=== PATIENT | female | born 1980 | race African-American/Black ===

== ENCOUNTER 2017-12-15 17:18 | Emergency (ER) | payer OTHER ==
[2017-12-15 17:40] VITALS: TEMP 97.9; BMI 39.0
--- NOTE | 2017-12-15 18:16 | PDOC ---
History of Present Illness - General Chief Complaint: Pain, Acute Stated Complaint: LEFT LEG PAIN Time Seen by Provider: 12/15/17 18:14 - History of Present Illness Initial Comments: 37yo F with PMH of Bipolar disorder, HTN, GERD, Strokes, DVT s/p IVC filter presenting with left leg pain. The pain is rated 12/10 and started yesterday while the patient was walking. She reports intermittent leg pain, but this pain was greater in severity than she is accustomed to and so she decided to come into the ED. Has not taken anything at home for pain. Patient recently moved from [place], but reports that she was seen at [facility] in [place] and [facility] in [place] for her strokes and blood clots over the past year or two. She was prescribed Eliquis 5mg po BID which she takes as instructed. She endorses a headache that started earlier today and is similar to previous headaches. Patient denies focal neurologic deficits, weakness, or slurred speech. Patient took three buses in her travels from [place] to [place]. No hemoptysis, no recent surgical history, and no hormone use. Reports urinary frequency and urgency, but no dysuria or hematuria. Denies fevers, chills, chest pain, or shortness of breath. Past History - Past Medical History Allergies/Adverse Reactions: Allergies Allergy/AdvReac Type Severity Reaction Status Date / Time No Known Drug Allergies Allergy Verified 12/15/17 17:41 Home Medications: Ambulatory Orders Apixaban [Eliquis] 5 mg PO BID 12/15/17 Cephalexin [Keflex] 500 mg PO BID #14 capsule 12/15/17 Anemia: No Asthma: No Cancer: No Cardiac Disorders: No CVA: Yes (stroke x 2 and blood clots.) COPD: No CHF: No Dementia: No Diabetes: No GI Disorders: Yes (ACID REFLUX) Disorders: No HTN: Yes Hypercholesterolemia: No Liver Disease: No Psychiatric Problems: Yes (bipolar) Seizures: No Thyroid Disease: No - Surgical History Abdominal Surgery: Yes (D AND C) Appendectomy: No Cardiac Surgery: No Cholecystectomy: No Lung Surgery: No Neurologic Surgery: No Orthopedic Surgery: No - Reproductive History (#): 4 Para: 1 Cervical CA: No Dysfunctional Uterine Bleeding: No Ectopic : No Endometrial CA: No Polycystic Ovaries: No Therapeutic (s) & number: Yes (2) Tubal Ligation: No Spontaneous : 0 - Suicide/Smoking/Psychosocial Hx Smoking Status: No Smoking History: Never smoked Have you smoked in the past 12 months: No Number of Cigarettes Smoked Daily: 0 Information on smoking cessation initiated: No Hx Alcohol Use: No Drug/Substance Use Hx: No Substance Use Type: Alcohol Hx Substance Use Treatment: No Review of Systems - Review of Systems Comments:: Constitutional: no fever, no chills HEENT: no throat pain, no dysphagia Cardiovascular: no chest pain, no palpitations Respiratory: no cough, no shortness of breath Gastrointestinal: no abdominal pain, no nausea, no vomiting Genitourinary: +urgency, +frequency Musculoskeletal: +leg pain Skin: no rash, no itching Neurologic: +headache, no dizziness *Physical Exam - Vital Signs Last Vital Signs Temp Pulse Resp BP Pulse Ox 97.9 F 72 16 113/74 100 12/15/17 17:18 12/15/17 17:18 12/15/17 17:18 12/15/17 17:18 12/15/17 17:18 - Physical Exam Comments: General: Awake, alert, and fully oriented, in no acute distress Head: No signs of trauma Eyes: EOMI, sclera anicteric ENT: Moist mucus membranes Neck: Normal ROM, supple Lungs: Lungs clear, Normal breath sounds Cardio: Regular rhythm, S1 and S2 present Abdomen: Soft, nontender. No guarding, no rebound, no masses Extremities: Upper left lateral thigh tender to palpation; Normal range of motion, Distal pulses present SKIN: Warm, Dry, normal turgor Neurologic: Cranial nerves II through XII grossly intact. Normal speech Medical Decision Making - Medical Decision Making 37yo F with PMH of Bipolar disorder, HTN, GERD, Strokes, DVT s/p IVC filter presenting with left leg pain. -DDX includes DVT, MSK, compartment syndrome, gout, IVC filter complication -With the installation of IVC filter and no SOB, there is low suspicion for PE -Patient is on Eliquis, but will assess left leg for DVT with duplex ultrasound 12/15/17 16:50 -UA positive for UTI -Keflex 500 given in ED and sent to pharmacy Patient reports feeling sufficient palliation of her headache with tylenol. -US negative for DVT -Patient is new to the area and does not have a primary care doctor or specialists. Referred to [facility], Cardiology, Neurology, and Vascular. -Discharged. Patient amenable to plan *DC/Admit/Observation/Transfer Diagnosis at time of Disposition: Urinary tract infection, Leg pain - Discharge Dispostion Disposition: HOME Condition at time of disposition: Improved - Prescriptions Prescriptions: Cephalexin [Keflex] 500 mg PO BID #14 capsule - Referrals Referrals: [facility] [place] Internal Med at [place] [Provider Group] Yusuf Orozco DO [Staff Physician] - Jan Scott [Non Staff, Medical] - Brando Mariano MD [Non Staff, Medical] - - Patient Instructions Printed Discharge Instructions: DI for Urinary Tract Infection (UTI) Additional Instructions: You came to the ED for left leg pain. Ultrasound study did not show a blood clot. Urinalysis shows that you have a urinary tract infection. Prescription sent to your pharmacy: Keflex, take 1 capsule twice a day for seven days for your urinary tract infection. Follow-up with a primary care doctor this week to discuss this ED visit and to further evaluate your leg pain. You have been referred to the [facility]. Call and make an appointment at the number provided. You have also been referred to cardiology, vascular, neurology specialists. Call and make appointments at the number provided. You can use [id number] tylenol for your pain. Take as instructed on the medication bottle. Continue to take eliquis as prescribed by your doctor. Medical attention is required if: you experience persistent symptoms, worsening pain, severe headache, have a seizure, or have focal numbness or weakness. If you think you are having an emergency, call for emergency medical services or present to the emergency department right away - Post Discharge Activity
[2017-12-15 19:43] LABS: URINE APPEARANCE CLEAR; URINE BILIRUBIN NEGATIVE (<2.0 mg/dL); URINE COLOR YELLOW; URINE GLUCOSE (UA) NEGATIVE (NEGATIVE); URINE KETONE 1+ (NEGATIVE); URINE LEUK ESTERASE 1+ (NEGATIVE); URINE NITRITE NEGATIVE (NEGATIVE); URINE PROTEIN NEGATIVE (NEGATIVE); URINE UROBILINOGEN NEGATIVE mg/dL (0.2-1.0)
[2017-12-15] MEDS ORDERED: ACETAMINOPHEN 1000 MG/100 ML VIAL (NON FORMULARY) IVPB ONE (19:43)
[2017-12-15] MEDS ORDERED: ACETAMINOPHEN 325 MG TABLET (FP) PO ONE (19:46)
--- NOTE | 2017-12-15 19:53 | PDOC ---
Attending Attestation - Resident Resident Name: Elizabeth Patel - ED Attending Attestation I have performed the following: I have examined & evaluated the patient, The case was reviewed & discussed with the resident, I agree w/resident's findings & plan, Exceptions are as noted - HPI HPI: 12/15/17 22:51 see mdm - Physicial Exam PE: 12/15/17 22:51 see mdm - Medical Decision Making 12/15/17 19:57 37F pmh of multiple dvts, cva s/p ivc filter on eliquis, compliant with medications. [facility] moved here last week was on a bus for days. Complaining of LLE px, no swelling, no pleuritic cp, sob, hemoptysis Well appearing, NAD, AOx3 mild ttp over L hip, no LLE swelling, tenderness Given hx, will evaluate for possible acute new thrombus analgesia, f/u doppler dispo per clinical course 12/15/17 22:50 resolution of complaints, doppler negative for dvt dc home with pcp follow up
[2017-12-15 19:54] LABS: EPI CELLS RARE /HPF (FEW); URINE MUCUS FEW
[2017-12-15] MEDS ORDERED: ACETAMINOPHEN 325 MG TABLET (FP) ONE (20:01)
[2017-12-15] MEDS ORDERED: CEPHALEXIN MONOHYDRATE 500 MG CAPSULE (UD) PO ONE (21:06)
[2017-12-15] MEDS ORDERED: CEPHALEXIN MONOHYDRATE 250 MG CAPSULE (FP) ONE (21:11)
[2017-12-15 21:31] VITALS: BP 118/72; PULSE 74
== END 2017-12-15 21:31 | disposition home or self-care (01) ==
LOC: JER 17:18
DX: M79.605 Pain in left leg (principal); N39.0 Urinary tract infection, site not specified; I10 Essential (primary) hypertension; F31.9 Bipolar disorder, unspecified; K21.9 Gastro-esophageal reflux disease without esophagitis; Z86.718 Personal history of other venous thrombosis and embolism
CPT/HCPCS: 81003; 81015; 84703; 87086; 93971-TC; 99283-25

== ENCOUNTER 2018-04-10 22:23 | Emergency (ER) | payer OTHER ==
--- NOTE | 2018-04-10 22:43 | PDOC ---
History of Present Illness - General Chief Complaint: Pain Stated Complaint: ABDOMINAL PAIN Time Seen by Provider: 04/10/18 22:43 Past History - Past Medical History Allergies/Adverse Reactions: Allergies Allergy/AdvReac Type Severity Reaction Status Date / Time No Known Drug Allergies Allergy Verified 12/15/17 17:41 Home Medications: Ambulatory Orders Apixaban [Eliquis] 5 mg PO BID 12/15/17 Cephalexin [Keflex] 500 mg PO BID #14 capsule 12/15/17 Anemia: No Asthma: No Cancer: No Cardiac Disorders: No CVA: Yes (stroke x 2 and blood clots.) COPD: No CHF: No Dementia: No Diabetes: No GI Disorders: Yes (ACID REFLUX) Disorders: No HTN: Yes Hypercholesterolemia: No Liver Disease: No Psychiatric Problems: Yes (bipolar) Seizures: No Thyroid Disease: No - Surgical History Abdominal Surgery: Yes (D AND C) Appendectomy: No Cardiac Surgery: No Cholecystectomy: No Lung Surgery: No Neurologic Surgery: No Orthopedic Surgery: No - Reproductive History (#): 4 Para: 1 Cervical CA: No Dysfunctional Uterine Bleeding: No Ectopic : No Endometrial CA: No Polycystic Ovaries: No Therapeutic (s) & number: Yes (2) Tubal Ligation: No Spontaneous : 0 - Suicide/Smoking/Psychosocial Hx Smoking Status: No Smoking History: Never smoked Have you smoked in the past 12 months: No Number of Cigarettes Smoked Daily: 0 Hx Alcohol Use: No Drug/Substance Use Hx: No Substance Use Type: Alcohol Hx Substance Use Treatment: No Abd/GI Specific PMHX - Complaint Specific PMHX GERD: No GI Ulcer Disease: No
[2018-04-10 22:54] VITALS: BP 113/73; PULSE 93; TEMP 97.8; BMI 36.6
[2018-04-10] MEDS ORDERED: ACETAMINOPHEN 1000 MG/100 ML VIAL (NON FORMULARY) IVPB ONE (22:56)
[2018-04-10] MEDS ORDERED: ACETAMINOPHEN 325 MG TABLET (FP) PO ONE (23:01)
--- NOTE | 2018-04-10 23:06 | PDOC ---
Attending Attestation - Resident Resident Name: Catie Mays - ED Attending Attestation I have performed the following: I have examined & evaluated the patient, The case was reviewed & discussed with the resident, I agree w/resident's findings & plan, Exceptions are as noted - HPI HPI: 04/10/18 23:02 37 yo female BIBA for multiple complaints 1)rt knee pain , 2) hot flashes, 3 ) abd pain 4) decreased appetite 5) frontal headache She has had all of these symptoms for 3 days - Physicial Exam PE: 04/10/18 23:14 wnwd 37 yo female BIBA for multiple concerns head ncat neck supple lungs cta b/l cvs [id number] abd protuberant extremities: tenderness to rt knee but no appreciable swelling, ,no erythema,no edema,no deformity skin warm and dry neuro axox3,moving all extremities psych anxious - Medical Decision Making 04/10/18 23:18 She reports a past medical history of multiple DVTs and is on eliquis. She had IVC filter placed. She reports a CVA in the past, but she has no residual on her neurological exam. History of bipolar <Milena Bagley - Last Filed: 04/10/18 23:18> - Medical Decision Making 04/11/18 01:35 EXAM: Ultrasound DUPLEX VASCULAR US-1 LEG HISTORY: Right leg edema COMPARISON: None. FINDINGS: Ultrasound right lower extremity veins demonstrates normal compression flow and augmentation IMPRESSION: No deep vein thrombosis Read by: Evans Grace MD Patient eloped at 1:21 AM. At this time vitals were stable, denied further care , denied signing AMA form, and ambulated with a steady gait without ataxia. <Francis Giron - Last Filed: 04/11/18 01:39> Attestations - Attestations 04/11/18 01:36 Documentation prepared by Francis Giron, acting as bio medical technician for Milena Bagley MD. <Francis Giron - Last Filed: 04/11/18 01:39>
--- NOTE | 2018-04-10 23:10 | PDOC ---
History of Present Illness - General Chief Complaint: Pain Stated Complaint: ABDOMINAL PAIN Time Seen by Provider: 04/10/18 22:43 History Source: Patient Exam Limitations: No Limitations - History of Present Illness Initial Comments: Pt is a 37 yo F, with PMH of CVA (no residual deficits), IVC filter (on Eliquis) , and bipolar disorder, who is presenting with complaints of decreased PO appetite, diffuse abdominal pain, hot/cold flashes, frontal headache, loose stool, and RLE pain and swelling x3 days. Pt states all of the symptoms started around the same time. She came to the ER today because she did not have an appetite which is unusual for her, so her roommate called EMS. She took tylenol this morning which relieved her symptoms, but did not take any additional doses before coming to the ER, nor did she take her temperature at home. Pt denies any falls or trauma. Pt denies any vision changes, syncope, numbness/weakness, chest pain, palpitations, SOB, nausea/vomiting, urinary symptoms, or constipation. LMP: 03/23/2018 and was normal Social: Regular THC use "for pain". Pt denies any cigarette or alcohol use. Pt denies any recent travel or sick contacts. Surgical: IVC placement. Family: no relevant history. 04/11/18 00:09 Past History - Travel Traveled outside of the country in the last 30 days: No Close contact w/someone who was outside of country & ill: No - Past Medical History Allergies/Adverse Reactions: Allergies Allergy/AdvReac Type Severity Reaction Status Date / Time No Known Drug Allergies Allergy Verified 12/15/17 17:41 Home Medications: Ambulatory Orders Apixaban [Eliquis] 5 mg PO BID 12/15/17 Cephalexin [Keflex] 500 mg PO BID #14 capsule 12/15/17 Anemia: No Asthma: No Cancer: No Cardiac Disorders: No CVA: Yes (stroke x 2 and blood clots.) COPD: No CHF: No Dementia: No Diabetes: No GI Disorders: Yes (ACID REFLUX) Disorders: No HTN: Yes Hypercholesterolemia: No Liver Disease: No Psychiatric Problems: Yes (bipolar) Seizures: No Thyroid Disease: No - Surgical History Abdominal Surgery: Yes (D AND C) Appendectomy: No Cardiac Surgery: No Cholecystectomy: No Lung Surgery: No Neurologic Surgery: No Orthopedic Surgery: No - Reproductive History (#): 4 Para: 1 Cervical CA: No Dysfunctional Uterine Bleeding: No Ectopic : No Endometrial CA: No Polycystic Ovaries: No Therapeutic (s) & number: Yes (2) Tubal Ligation: No Spontaneous : 0 - Suicide/Smoking/Psychosocial Hx Smoking Status: No Smoking History: Never smoked Have you smoked in the past 12 months: No Number of Cigarettes Smoked Daily: 0 Hx Alcohol Use: No Drug/Substance Use Hx: Yes (Marijuana) Substance Use Type: Alcohol Hx Substance Use Treatment: No Review of Systems - Review of Systems Able to Perform ROS?: Yes Is the patient limited Slovenian proficient: No Constitutional: Yes: Chills, Fever (subjective), Loss of Appetite, Weight Stable. No: Diaphoresis, Malaise, Night Sweats, Weakness HEENTM: No: Eye Pain, Blurred Vision, Recent change in vision, Double Vision, Nose Pain, Nose Congestion, Throat Pain, Throat Swelling, Difficulty Swallowing Respiratory: No: Cough, Orthopnea, Shortness of Breath, SOB with Exertion, SOB at Rest, Wheezing Cardiac (ROS): No: Chest Pain, Edema, Irregular Heart Rate, Lightheadedness, Palpitations, Syncope, Chest Tightness ABD/GI: Yes: Diarrhea, Poor Appetite. No: Constipated, Nausea, Poor Fluid Intake, Vomiting : No: Burning, Dysuria, Flank Pain, Pain, Urgency Musculoskeletal: Yes: See HPI, Joint Pain (R knee pain and swelling per pt), Joint Swelling. No: Back Pain, Muscle Pain, Muscle Weakness Integumentary: Yes: Flushing. No: Erythema, Rash Neurological: Yes: Headache. No: Numbness, Paresthesia, Pre-Existing Deficit, Seizure, Weakness, Unsteady Gait, Ataxia, Dizziness Psychiatric: Yes: Other (Bipolar). No: Sleep Pattern Change, Change in Appetite (only x3 days) Endocrine: Yes: Other (hot/cold flashes). No: Increased Urine, Change in Weight Hematologic/Lymphatic: Yes: Blood Clots (CVA, s/p IVC filter). No: Anemia, Easy Bleeding, Easy Bruising All Other Systems: Reviewed and Negative *Physical Exam - Vital Signs Last Vital Signs Temp Pulse Resp BP Pulse Ox 97.8 F 93 H 19 113/73 100 04/10/18 22:25 04/10/18 22:25 04/10/18 22:25 04/10/18 22:25 04/10/18 22:25 - Physical Exam Comments: Vitals stable, pt afebrile. Pt in NAD, obese body habitus. Pt very reactive to touch, states "everything hurts," but no obvious tenderness on exam. Pt can answer questions appropriately, but does not act stated age, and does not directly answer questions without prompting. PE showed pt alert and oriented. employee relations consultant generally intact, muscular strength and sensation intact. Eyes PERRLA, EOMI. Oropharynx without erythema or exudates, no LAD b/l. Moist mucous membranes, no decreased skin turgor. No nasal congestion, hearing intact. Clear heart sounds, S1/S2, no JVD, b/l pedal edema, or heart murmur. Clear lung sounds , no respiratory distress, wheezes, crackles, or accessory muscle use. No abdominal or CVA tenderness to palpation, no rebound, no guarding. Abdomen soft , non-distended, and with normoactive bowel sounds. Skin without jaundice or rash. Mild swelling RLE compared to LLE, muscle strength and sensation intact in hips and knees. 04/11/18 00:14 Moderate Sedation - Procedure Monitoring Vital Signs: Procedure Monitoring Vital Signs Temperature 97.8 F 04/10/18 22:25 Pulse Rate 93 H 04/10/18 22:25 Respiratory Rate 19 04/10/18 22:25 Blood Pressure 113/73 04/10/18 22:25 O2 Sat by Pulse Oximetry (%) 100 04/10/18 22:25 ED Treatment Course - RADIOLOGY Radiology Studies Ordered: Category Date Time Status DUPLEX VASCUL US-1 LEG [US] Stat Ultrasound 04/10/18 23:00 Ordered Medical Decision Making - Medical Decision Making Pt was seen at bedside, also will be seen by attending Dr. Bagley. Pt presenting with complaints of decreased PO appetite, diffuse abdominal pain, hot /cold flashes, frontal headache, loose stool, and RLE pain and swelling x3 days. Pt states all of the symptoms started around the same time. She came to the ER today because she did not have an appetite which is unusual for her, so her roommate called EMS. She took tylenol this morning which relieved her symptoms, but did not take any additional doses before coming to the ER, nor did she take her temperature at home. Pt denies any falls or trauma. Pt denies any vision changes, syncope, numbness/weakness, chest pain, palpitations, SOB, nausea/vomiting, urinary symptoms, or constipation. Vitals stable, pt afebrile. Pt in NAD, obese body habitus. Pt very reactive to touch, states "everything hurts," but no obvious tenderness on exam. Pt can answer questions appropriately, but does not act stated age, and does not directly answer questions without prompting. PE showed pt alert and oriented. employee relations consultant generally intact, muscular strength and sensation intact. Eyes PERRLA, EOMI. Oropharynx without erythema or exudates, no LAD b/l. Moist mucous membranes, no decreased skin turgor. No nasal congestion, hearing intact. Clear heart sounds, S1/S2, no JVD, b/l pedal edema, or heart murmur. Clear lung sounds , no respiratory distress, wheezes, crackles, or accessory muscle use. No abdominal or CVA tenderness to palpation, no rebound, no guarding. Abdomen soft , non-distended, and with normoactive bowel sounds. Skin without jaundice or rash. Mild swelling RLE compared to LLE, muscle strength and sensation intact in hips and knees. Considering DVT reoccurence vs viral illness. Pt has IVC filter and on anti- coagulation, but will r/o DVT with US. No need for D-dimer at this time, as pt anti-coagulated, O2 100% on RA, no SOB. Minimal concern for meningitis as pt has no neck pain with flexion/extension, afebrile, no meningeal signs. Pt has no focal neurologic deficits on exam, no weakness, unlikely CVA. Ordered work-up including CBC, CMP, and RLE US to r/o DVT. Provided 950 mg PO tylenol and PO water for improvement of headache and likely dehydration. Will continue to reassess pt and monitor for symptomatic improvement. Pt was very difficult stick and is not tolerating additional butterfly sticks. Providing PO water to improve hydration. Pt tolerating PO challenge. Will take pt to US and try labs again if pt is willing. 04/10/18 23:44 Pt returned from US. Providing 10 mg PO reglan and 25 mg PO benadryl. Will attempt to re-draw labs. 04/11/18 00:33 US LE: FINDINGS: Ultrasound right lower extremity veins demonstrates normal compression flow and augmentation. No DVT. 04/11/18 01:00 Pt refused further lab work and eloped. Refused to sign AMA form. Offered pt labwork and to continue to monitor for other methods of pain control, which she refused. Pt tolerated PO intake before leaving department. Vital signs were WNL. 04/11/18 01:21 *DC/Admit/Observation/Transfer Diagnosis at time of Disposition: Leg pain Qualifiers: Laterality: right Qualified Code(s): M79.604 - Pain in right leg - Discharge Dispostion Disposition: ELOPED Condition at time of disposition: Good Decision to Admit order: No - Referrals Referrals: [facility] [place] [facility] at [place] [Provider Group] - Patient Instructions Printed Discharge Instructions: DI for Leg Pain - Post Discharge Activity
[2018-04-10] MEDS ORDERED: ACETAMINOPHEN 325 MG TABLET (FP) ONE (23:43)
[2018-04-11] MEDS ORDERED: diphenhydrAMINE HCL 25 MG CAPSULE (FP) PO ONE ×4 (00:32→01:03)
[2018-04-11] MEDS ORDERED: METOCLOPRAMIDE HCL 10 MG TABLET (FP) PO ONE ×3 (00:32→01:02)
== END 2018-04-11 01:52 | disposition left against medical advice (07) ==
LOC: JER 22:23
DX: M79.604 Pain in right leg (principal); Z86.718 Personal history of other venous thrombosis and embolism; Z79.01 Long term (current) use of anticoagulants; F31.9 Bipolar disorder, unspecified; Z86.73 Personal history of transient ischemic attack (TIA), and cerebral infarction without residual deficits; Z95.828 Presence of other vascular implants and grafts
CPT/HCPCS: 93971-TC; 99282-25

== ENCOUNTER 2018-06-14 15:11 | Emergency (ER) | payer OTHER ==
--- NOTE | 2018-06-14 15:21 | PDOC ---
Rapid Medical Evaluation Time Seen by Provider: 06/14/18 15:18 Medical Evaluation: Allergies Allergy/AdvReac Type Severity Reaction Status Date / Time No Known Drug Allergies Allergy Verified 12/15/17 17:41 06/14/18 15:18 I have performed a brief in-person evaluation of this patient. The patient presents with a chief complaint of: left ear pain x2 days. On abx. Pertinent physical exam findings: deferred I have ordered the following: nothing The patient will proceed to the ED for further evaluation. Discharge Disposition - Diagnosis Ear pain, left - Referrals - Patient Instructions - Post Discharge Activity
[2018-06-14 15:23] VITALS: BP 116/70; PULSE 89; TEMP 99.1; BMI 37.8
--- NOTE | 2018-06-14 16:00 | PDOC ---
History of Present Illness - General Chief Complaint: Ear Problem Stated Complaint: EARACHE Time Seen by Provider: 06/14/18 15:18 History Source: Patient, Care Provider (COVER INSPECTOR) - History of Present Illness Associated Symptoms: denies: fever/chills Past History - Travel Traveled outside of the country in the last 30 days: No - Past Medical History Allergies/Adverse Reactions: Allergies Allergy/AdvReac Type Severity Reaction Status Date / Time No Known Drug Allergies Allergy Verified 06/14/18 15:44 Home Medications: Ambulatory Orders Apixaban [Eliquis] 5 mg PO BID 12/15/17 Ciprofloxacin HCl [Cipro] 500 mg PO BID 7 Days #14 tab 06/14/18 Ciprofloxacin HCl [Cipro] 500 mg PO BID 7 Days #14 tablet 06/14/18 Anemia: No Asthma: No Cancer: No Cardiac Disorders: No CVA: Yes (stroke x 2 and blood clots.) COPD: No CHF: No Dementia: No Diabetes: No GI Disorders: Yes (ACID REFLUX) Disorders: No HTN: No Hypercholesterolemia: No Liver Disease: No Psychiatric Problems: Yes (bipolar) Seizures: No Thyroid Disease: No - Surgical History Abdominal Surgery: Yes (D AND C) Appendectomy: No Cardiac Surgery: No Cholecystectomy: No Lung Surgery: No Neurologic Surgery: No Orthopedic Surgery: No - Reproductive History (#): 4 Para: 1 Cervical CA: No Dysfunctional Uterine Bleeding: No Ectopic : No Endometrial CA: No Polycystic Ovaries: No Therapeutic (s) & number: Yes (2) Tubal Ligation: No Spontaneous : 0 - Suicide/Smoking/Psychosocial Hx Smoking Status: No Smoking History: Never smoked Have you smoked in the past 12 months: No Number of Cigarettes Smoked Daily: 0 Hx Alcohol Use: No Drug/Substance Use Hx: No Substance Use Type: Alcohol Hx Substance Use Treatment: No Review of Systems - Review of Systems Constitutional: No: Chills, Fever HEENTM: Yes: Ear Pain, Ear Discharge. No: Throat Pain, Throat Swelling Respiratory: No: Cough, Shortness of Breath Cardiac (ROS): No: Chest Pain *Physical Exam - Vital Signs Last Vital Signs Temp Pulse Resp BP Pulse Ox 99.1 F 89 18 116/70 100 06/14/18 15:20 06/14/18 15:20 06/14/18 15:20 06/14/18 15:20 06/14/18 15:20 - Physical Exam General Appearance: Yes: Nourished HEENT: positive: EOMI, ANGELINE, Pharynx Normal, Other (L ear: + entire auricle with swelling, erythema and warmth, + yellowish discharge coming from TM, no pre /post auricular lymphadenopathy noted, + tendern to touch. 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 perichondritis involvement to cover pseudomonas f/u ENT in 2 days for wound check 06/14/18 19:35 06/14/18 19:39 *DC/Admit/Observation/Transfer Diagnosis at time of Disposition: Ear pain, left, Cellulitis of auricle of left ear - Discharge Dispostion Disposition: HOME Condition at time of disposition: Stable Decision to Admit order: No - Prescriptions Prescriptions: Ciprofloxacin HCl [Cipro] 500 mg PO BID 7 Days #14 tab Ciprofloxacin HCl [Cipro] 500 mg PO BID 7 Days #14 tablet - Referrals Referrals: Sid Bailey [Staff Physician] - - Patient Instructions Printed Discharge Instructions: Cellulitis Additional Instructions: Take antibiotics as prescribed follow up with your primary care doctor for a wound check in 2 days Take tylenol for pain return to the ER if worsening symptoms occurs - Post Discharge Activity
== END 2018-06-14 16:32 | disposition home or self-care (01) ==
LOC: JERFT 15:11
DX: H60.12 Cellulitis of left external ear (principal); K21.9 Gastro-esophageal reflux disease without esophagitis; Z86.73 Personal history of transient ischemic attack (TIA), and cerebral infarction without residual deficits; Z79.01 Long term (current) use of anticoagulants
CPT/HCPCS: 99281-25

== ENCOUNTER 2018-10-31 10:26 | Day surgery (SDC) | payer OTHER ==
[2018-10-28 15:54] VITALS: BMI 36.9
[2018-10-31 12:23] VITALS: TEMP 97.5
[2018-10-31] MEDS ORDERED: LIDOCAINE VISCOUS 2% ORAL/TOP 20 ML UNIT-DOSE CUP ONE (14:52)
[2018-10-31] MEDS ORDERED: LIDOCAINE VISCOUS 2% ORAL/TOP 20 ML UNIT-DOSE CUP MM ONE (15:01)
[2018-10-31 16:12] VITALS: BP 114/71; PULSE 64
--- NOTE | 2018-10-31 17:54 | ECHO ---
Name: CHAO, STEFANO Exam:Transesophageal Echocardiogram Study Date: 10/31/2018 02:44 PM Age: 38 yrs Height: 66 in Weight: 229 lb BSA: 2.1 m2 Procedure: A 2D transesophageal echocardiogram with Doppler and color flow Doppler was performed. Informed conse nt for Transesophageal Echocardiogram, and use of a contrast agent as needed, was obtained prior to the proc edure. The patient was brought to the endoscopy suite in a fasting state. An intravenous line was placed. A topical anesthetic agent was used for oropharangeal anesthesia. A bite block was inserted. IV concious sedati on was administered using propafol. A multifrequency, multiplane transesopheageal echocardiographic endoscop e was inserted and manipulated in the standard fashion to achieve multiplane views. The transesophageal pro be was passed without difficulty. The usual views were obtained; basal, mid-esophageal, transgastric and aor tic views. The patient's vital signs, including blood pressure, heart rate, pulse oximetry and cardiac rh ythm were monitored throughout the procedure and remained stable. The patient tolerated the procedure well with out evidence of orophangeal or esophageal trauma. There were no complications. The patient was in normal sinus rhythm during the exam. Left Ventricle The left ventricle is normal in size. Left ventricular systolic function is normal. No regional wall motion abnormalities noted. Atria The left atrial size is normal. No left atrial mass or thrombus visualized. No thrombus is detected i n the left atrial appendage. Color Doppler flow shows left to right flow across interatrial septum suggesti ng small ASD (but without an echo drop out). Agitated saline contrast injection does not show right to left sh unt. Mitral Valve The mitral valve is normal in structure and function. There is mild mitral regurgitation. Tricuspid Valve The tricuspid valve is normal in structure and function. There is mild tricuspid regurgitation. Aortic Valve The aortic valve is normal in structure and function. The aortic valve is trileaflet. No aortic regur gitation is present. Pulmonic Valve The pulmonic valve is not well visualized. Great Vessels No evidence of atherosclerotic plaque in descending thoracic aorta or aortic arch. Pericardium/Pluera There is no pericardial effusion. Interpretation Summary The left ventricle is normal in size. Left ventricular systolic function is normal. No regional wall motion abnormalities noted. The left atrial size is normal. No left atrial mass or thrombus visualized. No thrombus is detected in the left atrial appendage. Color Doppler flow shows left to right flow across interatrial septum suggesting small ASD (but witho ut an echo drop out). Agitated saline contrast injection does not show right to left shunt. Interatrial sep gonzález appears mildly redundant There is mild mitral regurgitation. There is mild tricuspid regurgitation. No evidence of atherosclerotic plaque in descending thoracic aorta or aortic arch There is no pericardial effusion. Fermín Chavis MD 10/31/2018 05:54 PM
== END 2018-10-31 16:12 | disposition home or self-care (01) ==
LOC: JASU-ENDO 10:26
PROVIDERS: ATTEND Internal Medicine Cardiovascular Disease
PROC: B246ZZ4 Ultrasonography of Right and Left Heart, Transesophageal (ICD-10-PCS; principal; 2018-10-31 13:45)
DX: I63.9 Cerebral infarction, unspecified (principal); E66.01 Morbid (severe) obesity due to excess calories; E78.5 Hyperlipidemia, unspecified
CPT/HCPCS: 84703; 93312; 93325

== ENCOUNTER 2018-12-31 19:10 | Inpatient (IN) | payer OTHER ==
[2018-12-31 19:21] VITALS: BMI 37.9
--- NOTE | 2018-12-31 19:44 | PDOC ---
History of Present Illness <Toña Swenson - Last Filed: 01/01/19 02:16> - General History Source: Patient Exam Limitations: No Limitations - History of Present Illness Initial Comments: 12/31/18 19:32 Patient is a 38-year-old female with history of HTN, HLD, CVA x2, PE, DVT, IVC filter, bipolar disorder, arthritis, AVN b/l hip L>R scheduled for L hip replacement on January [address] Bailey, c/o left hip and leg pain x 2-3 days. Patient states she had fallen in January last year and is afraid of falling again. She was going to PT last one due on Wednesday was discontinued from PT due pain. She was not given pain meds because she is on Eloquis. She had been self medicating with marijuana but with minimal relief. She now has difficulty ambulating due to the pain. PMD: Dr. Yancy Disla PMHX: as above PSOCHX: neg etoh, cig, (+) MJ ALL: NKDA GENERAL/CONSTITUTIONAL: [No fever or chills. No weakness. No weight change.] HEAD, EYES, EARS, NOSE AND THROAT: [No change in vision. No ear pain or discharge. No sore throat.] CARDIOVASCULAR: [No chest pain or shortness of breath.] RESPIRATORY: [No cough, wheezing, or hemoptysis.] GASTROINTESTINAL: [No nausea, vomiting, diarrhea or constipation. No rectal bleeding.] GENITOURINARY: [No dysuria, frequency, or change in urination.] MUSCULOSKELETAL: [(+) joint pain, (-) muscle swelling or pain. No neck or back pain.] SKIN AND BREASTS: [No rash or easy bruising.] NEUROLOGIC: [No headache, vertigo, loss of consciousness, or loss of sensation.] PSYCHIATRIC: [no depression or anxiety.] ENDOCRINE: [No increased thirst. No abnormal weight change.] HEMATOLOGIC/LYMPHATIC: [No anemia, easy bleeding, or history of blood clots.] ALLERGIC/IMMUNOLOGIC: [No hives or skin allergy. No latex allergy.] GENERAL: [The patient is awake, alert, and fully oriented, in moderate painful distress.] HEAD: [Normal with no signs of trauma.] EYES: [Pupils equal, round and reactive to light, extraocular movements intact, sclera anicteric, conjunctiva clear.] ENT: [Ears normal, nares patent, oropharynx clear without exudates. Moist mucous membranes.] NECK: [Limited range of motion of bilateral hip due to pain, supple without lymphadenopathy, JVD, or masses.] LUNGS: [Breath sounds equal, clear to auscultation bilaterally. No wheezes, and no crackles.] HEART: [Regular rate and rhythm, normal S1 and S2 without murmur, rub.] ABDOMEN: [Soft, nontender, normoactive bowel sounds. No guarding, no rebound. No masses.] EXTREMITIES: [Normal range of motion, no edema. No clubbing or cyanosis. No cords, erythema, or tenderness.] NEUROLOGICAL: [Cranial nerves II through XII grossly intact. Normal speech, normal gait.] PSYCH: [Normal mood, normal affect.] SKIN: [Warm, Dry, normal turgor, no rashes or lesions noted.] <Krissy Mclean - Last Filed: 01/01/19 02:22> - General Chief Complaint: Pain, Acute Stated Complaint: LEFT LEG PAIN Past History <Toña Swenson - Last Filed: 01/01/19 02:16> - Past Medical History Anemia: No Asthma: No Cancer: No Cardiac Disorders: No CVA: Yes (stroke x 2 - Mar 2017) COPD: No CHF: No Dementia: No Diabetes: No GI Disorders: No Disorders: No HTN: No Hypercholesterolemia: Yes Liver Disease: No Psychiatric Problems: Yes (bipolar) Seizures: No Thyroid Disease: No - Surgical History Abdominal Surgery: Yes Appendectomy: No Cardiac Surgery: Yes (IVC filter ) Cholecystectomy: No Lung Surgery: No Neurologic Surgery: No Orthopedic Surgery: No - Reproductive History (#): 4 Para: 1 Cervical CA: No Dysfunctional Uterine Bleeding: No Ectopic : No Endometrial CA: No Polycystic Ovaries: No Therapeutic (s) & number: Yes (2) Tubal Ligation: No Spontaneous : 0 - Psycho Social/Smoking Cessation Hx Smoking Status: No Smoking History: Never smoked Have you smoked in the past 12 months: No Number of Cigarettes Smoked Daily: 0 Hx Alcohol Use: No Drug/Substance Use Hx: No Substance Use Type: Alcohol, Marijuana Hx Substance Use Treatment: Yes (2012 [facility]) <Krissy Mclean - Last Filed: 01/01/19 02:22> - Past Medical History Allergies/Adverse Reactions: Allergies Allergy/AdvReac Type Severity Reaction Status Date / Time No Known Drug Allergies Allergy Verified 12/31/18 19:21 Home Medications: Ambulatory Orders Apixaban [Eliquis] 5 mg PO BID 12/15/17 *Physical Exam - Vital Signs Last Vital Signs Temp Pulse Resp BP Pulse Ox 98.3 F 94 H 20 111/64 99 12/31/18 19:18 12/31/18 19:18 12/31/18 19:18 12/31/18 19:18 12/31/18 19:18 <Toña Swenson - Last Filed: 01/01/19 02:16> - Vital Signs Last Vital Signs Temp Pulse Resp BP Pulse Ox 98.3 F 94 H 20 111/64 99 12/31/18 19:18 12/31/18 19:18 12/31/18 19:18 12/31/18 19:18 12/31/18 19:18 <Krissy Mclean - Last Filed: 01/01/19 02:22> ED Treatment Course - ADDITIONAL ORDERS Additional order review: Laboratory Results 12/31/18 22:57 POC Glucometer 119 12/31/18 22:57 POC Glucometer 119 - Medications Given in the ED: ED Medications Discontinued Medications Generic Name Dose Route Start Last Admin Trade Name Fide PRN Reason Stop Dose Admin Acetaminophen 1,000 mg 12/31/18 22:16 12/31/18 22:52 Ofirmev Injection - IVPB 12/31/18 22:17 1,000 mg ONCE ONE Administration Hydromorphone HCl 2 mg 12/31/18 19:45 12/31/18 20:28 Dilaudid Injection - IM 12/31/18 19:46 2 mg ONCE ONE Administration Lidocaine 1 patch 12/31/18 21:50 12/31/18 21:56 Lidoderm Patch - TP 12/31/18 21:51 1 patch ONCE ONE Administration Sodium Chloride 1,000 ml 12/31/18 22:06 12/31/18 22:45 Normal Saline - IV 12/31/18 22:07 1,000 ml ONCE ONE Administration <Toña Swenson - Last Filed: 01/01/19 02:16> Medical Decision Making - Medical Decision Making 01/01/19 02:16 Pt will be admitted to the hospital because she is unable to ambulate. Pain meds not helping her. Pt fears that she will fall at home. <Toña Swenson - Last Filed: 01/01/19 02:16> - Medical Decision Making 12/31/18 19:32 Patient is a 38-year-old female with history of HTN, HLD, CVA x2, PE, DVT, IVC filter, bipolar disorder, arthritis, AVN b/l hip L>R scheduled for L hip replacement on January [address] Bailey, c/o left hip and leg pain x 2-3 days. Patient states she had fallen in January last year and is afraid of falling again. She was going to PT last one due on Wednesday was discontinued from PT due pain. She was not given pain meds because she is on Eloquis. She had been self medicating with marijuana but with minimal relief. She now has difficulty ambulating due to the pain. Patient with hip pain will treat symptomatically Dilaudid 2 mg IM 12/31/18 22:00 Patient complaining of feeling really hot Examined mildly diaphoretic Fingerstick done = 104 BP 102/57, pulse 67, O2 sat 100% on room air We will give patient some IV fluids. 12/31/18 22:17 Still complains of pain will give Tylenol 1 g IV and Lidoderm patch 01/01/19 02:17 Attempted several times to ambulate the patient. Unable to get patient up for her to ambulate due to pain. She is concerned that she will fall and she is on Eliquis. Patient was endorsed to the resident team for endorsement for admission. <Krissy Mclean - Last Filed: 01/01/19 02:22> Discharge <Toña Swenson - Last Filed: 01/01/19 02:16> - Discharge Information Problems reviewed: Yes <Krissy Mclean - Last Filed: 01/01/19 02:22> - Discharge Information Clinical Impression/Diagnosis: Inability to ambulate due to hip, Avascular necrosis of bones of both hips Condition: Stable - Follow up/Referral Referrals: ON STAFF,NOT [Primary Care Provider] -
[2018-12-31] MEDS ORDERED: HYDROmorphone HCL CARPU-JECT 2 MG/1 ML DISP.SYRIN IM ONE (19:45)
[2018-12-31] MEDS ORDERED: HYDROmorphone HCl 2 MG/ML VIAL ONE (20:21)
[2018-12-31] MEDS ORDERED: LIDOCAINE 5% TOPICAL PATCH ONE (21:50)
[2018-12-31] MEDS ORDERED: LIDOCAINE 5% TOPICAL PATCH TP ONE (21:50)
[2018-12-31] MEDS ORDERED: LIDOCAINE PATCH REMOVAL MC SCH (22:00)
[2018-12-31] MEDS ORDERED: SODIUM CHLORIDE 0.9% 500 ML INFUS.BAG IV ONE (22:06)
[2018-12-31] MEDS ORDERED: ACETAMINOPHEN 1000 MG/100 ML VIAL (NON FORMULARY) IVPB ONE (22:16)
[2018-12-31] MEDS ORDERED: ACETAMINOPHEN INJECTION 100 ML IVPB ONE (22:46)
--- NOTE | 2019-01-01 02:18 | PDOC ---
*Physical Exam - Vital Signs Last Vital Signs Temp Pulse Resp BP Pulse Ox 98.3 F 94 H 20 111/64 99 12/31/18 19:18 12/31/18 19:18 12/31/18 19:18 12/31/18 19:18 12/31/18 19:18 ED Treatment Course - ADDITIONAL ORDERS Additional order review: Laboratory Results 12/31/18 22:57 POC Glucometer 119 12/31/18 22:57 POC Glucometer 119 - Medications Given in the ED: ED Medications Discontinued Medications Generic Name Dose Route Start Last Admin Trade Name Fide PRN Reason Stop Dose Admin Acetaminophen 1,000 mg 12/31/18 22:16 12/31/18 22:52 Ofirmev Injection - IVPB 12/31/18 22:17 1,000 mg ONCE ONE Administration Hydromorphone HCl 2 mg 12/31/18 19:45 12/31/18 20:28 Dilaudid Injection - IM 12/31/18 19:46 2 mg ONCE ONE Administration Lidocaine 1 patch 12/31/18 21:50 12/31/18 21:56 Lidoderm Patch - TP 12/31/18 21:51 1 patch ONCE ONE Administration Sodium Chloride 1,000 ml 12/31/18 22:06 12/31/18 22:45 Normal Saline - IV 12/31/18 22:07 1,000 ml ONCE ONE Administration Medical Decision Making - Medical Decision Making - Patient signed out to me from Dr. Fernandez to be admitted for avascular necrosis and inability to ambulate. Patient is scheduled for a hip replacement next month but cannot ambulate at the present time. - Patient microblogged for admission. - Patient accepted to hospitalist for admission Discharge - Discharge Information Problems reviewed: Yes Clinical Impression/Diagnosis: Inability to ambulate due to hip, Avascular necrosis of bones of both hips Condition: Stable - Admission Yes - Follow up/Referral - Patient Discharge Instructions - Post Discharge Activity
--- NOTE | 2019-01-01 02:30 | PN ---
Teaching Attending Note Name of Resident: Magi Perea ATTENDING PHYSICIAN STATEMENT I saw and evaluated the patient. I reviewed the resident's note and discussed the case with the resident. I agree with the resident's findings and plan as documented. SUBJECTIVE: Patient is a 38 year old woman with a PMH of HTN, HLD, CVA x2, PE, DVT, IVC filter, Bipolar disorder, Arthritis, Avascular necrosis of hips (L>R) scheduled for L hip replacement on January [address] Bailey (?at [facility]), presents with complaint of left hip and leg pain x 2-3 days. Patient states she had fallen in January last year and is afraid of falling again. She was going to PT last one due on Wednesday was discontinued from PT due pain. She was not given pain medications because she is on ?Eliquis. She had been self medicating with marijuana but with minimal relief. She now has difficulty ambulating due to the pain. Denies fever, chills, SOB, chest pain, headache, dizziness, dysuria or diarrhea. Denies tobacco, alcohol or illicit drug use. Has FH of HTN and hip replacement. OBJECTIVE: Alert Vital Signs Period Temp Pulse Resp BP Sys/Cain Pulse Ox Last 24 Hr 98.3 F 94 20 111/64 99 HEENT: No Jaundice, eye redness or discharge, PERRLA, EOMI. Normocephalic, atraumatic. External ears are normal and hearing is grossly intact. No nasal discharge. Neck: Supple, nontender. No palpable adenopathy or thyromegaly. No JVD Chest: Good effort. Clear to auscultation and percussion. Heart: Regular. No S3, rub or murmur Abdomen: Not distended, soft, nontender and no HSM. No rebound or guarding. Normal bowel sounds. Ext: Peripheral pulses intact. No leg edema. Tender left hip with limited ROM. Distal sensory and motor function intact. Skin: Warm and dry. No petechiae, rash or ecchymosis. Neuro: Alert. Oriented x3. CN 2-12 grossly intact. Sensation grossly intact in all four extremities and DTR are symmetric. Psych: Appropriate mood and affect. Good insight. Current Medications Generic Name Dose Route Start Last Admin Trade Name Freq PRN Reason Stop Dose Admin Miscellaneous 1 each 12/31/18 22:00 12/31/18 22:02 Lidoderm Patch Removal MC Not Given DAILY@2200 [facility] Home Medications Medication Instructions Recorded Apixaban [Eliquis] 5 mg PO BID 12/15/17 ASSESSMENT AND PLAN: 1. Hip pain/Avascular necrosis/Difficulty with ambulation - Will get basic laboratory tests including CBC, CMP, UA and EKG. Use IV morphine, PO tylenol and lidocaine patch for pain control. During the day, will contact her Ortho surgeon at [facility] to coordinate her care and ascertain the need for any further radiologic studies at [facility] since she is already scheduled for hip replacement surgery. Consult Pain management, Ortho and PT. Provide bowel regimen and continue to provide generous emotional support. Will continue comprehensive care for all of patients comorbid conditions. 2. Obesity Counseled on the risks associated with obesity. Will provide patient all the necessary assistance, counseling and positive reinforcement to facilitate weight loss. Consult license and permit specialist. 3. Hypertension - Restart suitable outpatient antihypertensive drugs when clinically appropriate. Revise regimen to ensure [id number] excellent BP control and veterans' counselor patient on the injurious effects of uncontrolled hypertension. Nonpharmacologic measures to control hypertension like weight loss , salt restriction and exercise discussed. Importance of adherence to treatment regimen and attainment of normotension emphasized. 4. DVT prophylaxis - On Eliquis 5. Advance directives - Full code
--- NOTE | 2019-01-01 02:55 | HP ---
CHIEF COMPLAINT: Hip pain PCP: Dr. Yancy Disla HISTORY OF PRESENT ILLNESS: 38F HTN, HLD, CVAx2, PE, DVT s/p IVC Filter, bipolar disorder, arthritis, and AVN b/l left greater than the right, who presents today with inability to ambulate due to hip pain. Her hip pain originally started earlier this year. Patient had workup completed with Dr. Bailey who operates at [facility]. Patient was until recently receiving physical therapy to deal with pain, however pain was not subsiding with therapy. Dr. Bailey canceled physical therapy for patient and scheduled hip replacement for January. Over the past 3 days however patient has had increasing difficulty ambulating and has been using her cane for support. Earlier today patient was hampered by pain that she needed to use a walker at home, and was having difficulty getting out of her chair at home. Patient describes difficulty in attending to tasks of daily living. Patient has no complaints of paresthesias or numbness in legs, and endorses pain being more severe in the left hip compared to the right. Patient endorses using marijuana to self-medicate for pain management, as she is not being prescribed pain medications. ER course was notable for: (1)Patient was given NS 2L bolus, Ofirmev, Lidocaine patch, and Dilaudid 2mg IM Once. Recent Travel: None PAST MEDICAL HISTORY: HTN, HLD, CVAx2, PE, DVT s/p IVC Filter, bipolar disorder , arthritis, and AVN b/l left greater than the right FAMILY MEDICAL HISTORY: HTN PAST SURGICAL HISTORY: IVC Filter Social History: Smoking: No tobacco use, but uses marijuana daily if accessible. Alcohol:social drinker Drugs: Denies any substance use except marijuana Allergies No Known Drug Allergies Allergy (Verified 12/31/18 19:21) HOME MEDICATIONS: Home Medications Medication Instructions Recorded Apixaban [Eliquis] 5 mg PO BID 12/15/17 REVIEW OF SYSTEMS CONSTITUTIONAL: generalized weakness Absent: fever, chills, diaphoresis, malaise, loss of appetite, weight change CARDIOVASCULAR: Absent: chest pain, syncope, palpitations, irregular heart rate, lightheadedness , peripheral edema RESPIRATORY: Absent: cough, shortness of breath, dyspnea with exertion, GASTROINTESTINAL: Absent: abdominal pain, abdominal distension, nausea, vomiting, diarrhea, constipation MUSCULOSKELETAL: arthralgia Absent: myalgia, joint swelling, back pain, neck pain HEMATOLOGIC/IMMUNOLOGIC: Absent: easy bleeding, easy bruising, lymphadenopathy, frequent infections ENDOCRINE: Absent: unexplained weight gain, unexplained weight loss, heat intolerance, cold intolerance NEUROLOGIC: Absent: headache, focal weakness or paresthesias, dizziness, unsteady gait, seizure, mental status change PHYSICAL EXAMINATION Vital Signs - 24 hr 12/31/18 19:18 Temperature 98.3 F Pulse Rate 94 H Respiratory 20 Rate Blood Pressure 111/64 O2 Sat by Pulse 99 Oximetry (%) GENERAL: Awake, alert, and fully oriented, in mild distress. HEAD: Normal with no signs of trauma. EYES: Pupils equal, round and reactive to light, extraocular movements intact, sclera anicteric, conjunctiva clear. No lid lag. EARS, NOSE, THROAT: Ears normal, nares patent, oropharynx clear without exudates. Moist mucous membranes. NECK: Normal range of motion, supple without lymphadenopathy, JVD, or masses. LUNGS: Breath sounds equal, clear to auscultation bilaterally. HEART: Regular rate and rhythm, normal S1 and S2 without murmur, rub or gallop. ABDOMEN: Soft, nontender, not distended, normoactive bowel sounds. MUSCULOSKELETAL: Normal range of motion at all joints. Left hip tender to palpation. Passive range of motion elicits pain. Patient limited in her active range of motion as she is in too much pain to comply with all testing. UPPER EXTREMITIES: 2+ pulses, warm, well-perfused. No cyanosis. No clubbing. No peripheral edema. LOWER EXTREMITIES: 2+ pulses, warm, well-perfused. No calf tenderness. No peripheral edema. NEUROLOGICAL: Cranial nerves II-XII intact. Normal speech. Laboratory Results - last 24 hr 12/31/18 22:57 POC Glucometer 119 ASSESSMENT/PLAN: 38F HTN, HLD, CVAx2, PE, DVT s/p IVC Filter, bipolar disorder, arthritis, and AVN b/l left greater than the right who presents today with difficulty ambulating due to hip pain. 1)Hip Pain due to previously diagnosed avn of hip -F/U CBC, CMP, UA, EKG -Morphine 1 mg IV Q3H PRN -Gabapentin 300 mg PO Q8H -Acetaminophen 650 mg PO Q6H PRN -Lidocaine Patch PRN -Consulted Ortho -Will have to obtain records from [facility] and communicate with her surgeon to coordinate care 2)HTN -Patient currently not hypertensive. Will start on BP medications as needed. 3) Obesity -Ophthalmology Technician on diet and exercise 4)Pain management -Consulted Pain Management, -Counseled on stopping marijuana use F: oral hydration E: monitor CMP N:Sodium/cholesterol restricted diet DVT Prophylaxis: Patient on Eliquis already Visit type - Emergency Visit Emergency Visit: Yes ED Registration Date: 01/01/19 Care time: The patient presented to the Emergency Department on the above date and was hospitalized for further evaluation of their emergent condition. - New Patient This patient is new to me today: Yes Date on this admission: 01/01/19 - Critical Care Critical Care patient: No ATTENDING PHYSICIAN STATEMENT I saw and evaluated the patient. I reviewed the resident's note and discussed the case with the resident. I agree with the resident's findings and plan as documented. SUBJECTIVE: OBJECTIVE: ASSESSMENT AND PLAN:
[2019-01-01] MEDS ORDERED: MORPHINE SULFATE 2 MG/ML VIAL IVPUSH PRN (04:01)
[2019-01-01] MEDS ORDERED: ACETAMINOPHEN 325 MG TABLET (FP) PO PRN ×2 (04:01→09:19)
[2019-01-01 04:38] LABS: PH,URINE 7.5 (5.0-8.0); URINE APPEARANCE CLOUDY; URINE BILIRUBIN NEGATIVE (NEGATIVE); URINE COLOR YELLOW; URINE GLUCOSE (UA) NEGATIVE (NEGATIVE); URINE KETONE NEGATIVE (NEGATIVE); URINE LEUK ESTERASE NEGATIVE (NEGATIVE); URINE NITRITE NEGATIVE (NEGATIVE); URINE PROTEIN TRACE (NEGATIVE); URINE UROBILINOGEN 0.2 mg/dL (0.2-1.0)
--- NOTE | 2019-01-01 09:13 | PN ---
Physical Exam: SUBJECTIVE: Patient seen and examined. She complains of pain in her left hip and leg. She says she cannot stand or walk because of the pain, but then says she can walk but is afraid of falling. OBJECTIVE: Vital Signs Period Temp Pulse Resp BP Sys/Cain Pulse Ox Last 24 Hr 98.3 F 90-94 20-20 111-115/64-66 98-99 GENERAL: The patient is awake, alert, and fully oriented, in no acute distress. LUNGS: Breath sounds equal, clear to auscultation bilaterally, no wheezes, no crackles, no accessory muscle use. HEART: Regular rate and rhythm, S1, S2 without murmur, rub or gallop. ABDOMEN: Obese, soft, nontender, nondistended, normoactive bowel sounds, no guarding, no rebound, no hepatosplenomegaly, no masses. EXTREMITIES: 2+ pulses, warm, well-perfused, no edema. (+) tenderness over left hip. Decreased ROM left hip secondary to pain. Laboratory Results - last 24 hr 12/31/18 01/01/19 22:57 04:14 POC Glucometer 119 Urine Color Yellow Urine Appearance Cloudy Urine pH 7.5 D Ur Specific [place] 1.036 H Urine Protein Trace Urine Glucose (UA) Negative Urine Ketones Negative Urine Blood Negative Urine Nitrite Negative Urine Bilirubin Negative Urine Urobilinogen 0.2 Ur Leukocyte Esterase Negative Active Medications Generic Name Dose Route Start Last Admin Trade Name Freq PRN Reason Stop Dose Admin Acetaminophen 650 mg 01/01/19 04:01 Tylenol - PO Q4H PRN PAIN LEVEL 4 - 6 Apixaban 5 mg 01/01/19 10:00 Eliquis - PO BID [facility] Atorvastatin Calcium 40 mg 01/01/19 22:00 Lipitor - PO HS TYRESE Gabapentin 300 mg 01/01/19 06:30 Neurontin - PO TID [facility] Miscellaneous 1 each 12/31/18 22:00 12/31/18 22:02 Lidoderm Patch Removal MC Not Given DAILY@2200 [facility] Morphine Sulfate 1 mg 01/01/19 04:01 Morphine Sulfate IVPUSH Q3H PRN PAIN LEVEL 7 - 10 Pantoprazole Sodium 40 mg 01/01/19 10:00 Protonix - PO DAILY [facility] ASSESSMENT/PLAN: This is a 38 year old woman with a history of HTN, hyperlipidemia, CVAx2, PE, DVT, IVC filter, bipolar disorder, arthritis, AVN of both hips who presented to the ED with difficulty ambulating because of hip pain. 1. Left hip pain secondary to avascular necrosis - Patient is scheduled to have left hip replacement in January - She has been using medical marijuana for pain control - Ortho evaluation - Pain control with Neurontin, acetaminophen/oxycodone/morphine - Physical therapy 2. HTN - On no medication 3. Hyperlipidemia - Continue Lipitor 4. History of DVT/PE - Continue Eliquis 5. History of CVA - Continue Lipitor, Eliquis 6. Obesity with BMI 37.9 Visit type - Emergency Visit Emergency Visit: Yes ED Registration Date: 01/01/19 Care time: The patient presented to the Emergency Department on the above date and was hospitalized for further evaluation of their emergent condition. - New Patient This patient is new to me today: Yes Date on this admission: 01/01/19 - Critical Care Critical Care patient: No - Discharge Referral Referred to [facility] Med P.C.: No
[2019-01-01 09:39] LABS: BASO % 0.4 % (0-2.0); EOS % 2.8 % (0-4.5); HEMATOCRIT 33.1 % (32.4-45.2); HEMOGLOBIN 11.2 GM/dL (10.7-15.3); LYMPH % 28.6 % (8-40); MCH 28.9 pg (25.7-33.7); MCHC 33.8 g/dl (32.0-36.0); MEAN CELL VOLUME 85.5 fl (80-96); MONO % 7.3 % (3.8-10.2); NEUT % 60.9 % (42.8-82.8); PLATELET COUNT 216 K/MM3 (134-434); RBC 3.87 M/mm3 (3.60-5.2); WHITE BLOOD COUNT 5.8 K/mm3 (4.0-10.0)
[2019-01-01 09:58] LABS: ALBUMIN 3.2 g/dl (3.4-5.0); BILIRUBIN,TOTAL 0.2 mg/dL (0.2-1); BLOOD UREA NITROGEN 4.1 mg/dL (7-18); CALCIUM 8.8 mg/dL (8.5-10.1); CREATININE 0.7 mg/dL (0.55-1.3); POTASSIUM 4.2 mmol/L (3.5-5.1); TOT PROT 6.9 g/dl (6.4-8.2)
[2019-01-01] MEDS ORDERED: oxyCODONE HCL 5 MG TABLET ONE (10:27)
[2019-01-01] MEDS ORDERED: ACETAMINOPHEN 325 MG TABLET (FP) ONE (10:27)
[2019-01-01] MEDS: GABAPENTIN 300 MG CAPSULE (FP) PO SCH ×3 (10:30→21:28)
[2019-01-01] MEDS: oxyCODONE HCL 5 MG TABLET PO PRN ×2 (10:30→18:35)
[2019-01-01] MEDS: APIXABAN 5 MG TABLET PO SCH ×2 (10:31→21:28)
[2019-01-01] MEDS: PANTOPRAZOLE 40 MG TABLET (FP) PO SCH (11:42)
--- NOTE | 2019-01-01 13:45 | EKG ---
Test Reason : Blood Pressure : / mmHG Vent. Rate : 067 BPM Atrial Rate : 067 BPM P-R Int : 206 ms QRS Dur : 082 ms QT Int : 402 ms P-R-T Axes : 046 -08 011 degrees QTc Int : 424 ms NORMAL SINUS RHYTHM NORMAL ECG WHEN COMPARED WITH ECG OF 27-SEP-2005 13:55, NO SIGNIFICANT CHANGE WAS FOUND Confirmed by MD Gigi, Gallito ([id number]) on 01/01/2019 1:45:28 PM Referred By: EDILMA Confirmed By:Gallito Yu MD
[2019-01-01] MEDS: oxyCODONE HCL 10 MG SUSTAINED ACTING TABLET PO SCH ×2 (16:53→21:28)
[2019-01-01] MEDS ORDERED: ATORVASTATIN CA 40 MG TABLET (FP) PO SCH (22:00)
[2019-01-02] MEDS: oxyCODONE HCL 5 MG TABLET PO PRN ×3 (01:25→13:48)
[2019-01-02] MEDS: GABAPENTIN 300 MG CAPSULE (FP) PO SCH ×2 (05:20→13:48)
[2019-01-02] MEDS: PANTOPRAZOLE 40 MG TABLET (FP) PO SCH ×2 (07:55→12:26)
[2019-01-02 08:11] VITALS: BP 109/67; PULSE 68; TEMP 98.3
[2019-01-02] MEDS: oxyCODONE HCL 10 MG SUSTAINED ACTING TABLET PO SCH (10:03)
[2019-01-02] MEDS: APIXABAN 5 MG TABLET PO SCH (10:05)
--- NOTE | 2019-01-02 13:02 | DS ---
Physical Exam: SUBJECTIVE: Patient seen and examined OBJECTIVE: Vital Signs Period Temp Pulse Resp BP Sys/Cain Pulse Ox Last 24 Hr 97.7 F-98.5 F 68-77 15-20 100-117/51-67 99 PHYSICAL EXAM GENERAL: The patient is awake, alert, and fully oriented, in no acute distress. HEAD: Normal with no signs of trauma. EYES: PERRL, extraocular movements intact, sclera anicteric, conjunctiva clear. ENT: Ears normal, nares patent, oropharynx clear without exudates, moist mucous membranes. NECK: Trachea midline, full range of motion, supple. LUNGS: Breath sounds equal, clear to auscultation bilaterally, no wheezes, no crackles, no accessory muscle use. HEART: Regular rate and rhythm, S1, S2 without murmur, rub or gallop. ABDOMEN: Obese, soft, nontender, nondistended, normoactive bowel sounds, no guarding, no rebound, no hepatosplenomegaly, no masses. EXTREMITIES: 2+ pulses, warm, well-perfused, no edema. NEUROLOGICAL: Cranial nerves II through XII grossly intact. Normal speech, gait not observed. SKIN: Warm, dry, normal turgor, no rashes or lesions noted. LABS HOSPITAL COURSE: Date of Admission:01/01/19 Date of Discharge: 01/02/19 Minutes to complete discharge: 45 Discharge Summary Problems reviewed: Yes Reason For Visit: INABILITY TO AMBULATE DUE TO HIP Current Active Problems Avascular necrosis of bones of both hips (Acute) Inability to ambulate due to hip (Acute) Hospital Course: This is a 38 year old woman with a history of HTN, hyperlipidemia, CVAx2, PE, DVT, IVC filter, bipolar disorder, arthritis, avascular necrosis of both hips who presented to the ED on December 31 complaining of difficulty ambulating because of hip pain. She had been following with Lynn Granados and Dr. Kin Whittaker. She said she was scheduled to have a left hip replacement in January. She had been doing PT but said it was stopped because she continued to have pain. She said was was not taking any pain medication because she was told she can't because she is taking Eliquis. She also said that she was offered medical marijuana for pain management but had not started using it. In the ED, she was treated with IV acetaminophen and IM Dilaudid. She was admitted for pain control and treated with oxycodone. She was seen by Dr. Whittaker who confirmed that she is scheduled to have left hip replacement on January 24 and that he is awaiting insurance authorization and medical clearance. He suggested short term rehab but she declined. She was seen by Dr. Valeriano Shelley who recommended OxyContin which is not covered by her insurance. She was able to ambulate with a walker. She is being discharged home with oxycodone IR on January 02. She is advised to see Lynn Granados within 1 week to discuss preoperative medical optimization and with Dr. Shelley within 1 week for pain management follow-up. Condition: Stable - Instructions Diet, Activity, Other Instructions: You were evaluated at the [facility] emergency department on December 31 for difficulty walking because of hip pain. You have avascular necrosis of your hips and were scheduled to have hip replacement by Dr. Whittaker on January 24 at [facility]. In the ER, you were treated with acetaminophen and Dilaudid, and you were admitted for pain control. You were started on oxycodone for pain. A electrostatic painter, Dr. Valeriano Shelley, recommended OxyContin 10 mg twice a day and Percocet [address] Whittaker was contacted and he recommended short term rehab while awaiting authorization and mediacl clearance for surgery. You did not want to go to a rehab facility and so you are being discharged home on January 02. Prescriptions for OxyContin and Percocet have been sent to [facility]. Please schedule an appointments with Dr. Valeriano Shelley and with your primary care provider, Lynn Granados, for a follow up and for a pre-operative medical evaluation in 1 week. Referrals: Lynn Granados NP [Nurse Practitioner] - 1 Week Valeriano Shelley MD [Staff Physician] - 1 Week Kin Whittaker MD [Staff Physician] - Disposition: HOME - Home Medications Comprehensive Discharge Medication List: Ambulatory Orders Apixaban [Eliquis] 5 mg PO BID 12/15/17 Atorvastatin Ca [Lipitor] 40 mg PO HS 01/01/19 Gabapentin [Neurontin -] 300 mg PO Q8H 01/01/19 Pantoprazole Sodium [Protonix -] 40 mg PO DAILY 01/01/19 Oxycodone HCl/Acetaminophen [Percocet 5-325 mg Tablet] 1 tab PO Q4H PRN #60 tablet MDD 6 tabs 01/02/19 oxyCODONE SR [Oxycontin] 10 mg PO BID #30 tab.er.12h MDD 20 mg 01/02/19 This patient is new to me today: No Emergency Visit: Yes ED Registration Date: 01/01/19 Care time: The patient presented to the Emergency Department on the above date and was hospitalized for further evaluation of their emergent condition. Critical Care patient: No - Discharge Referral Referred to [facility] Med P.C.: No
== END 2019-01-02 14:35 | disposition home or self-care (01) | DRG 554 ==
LOC: JER 19:10 → JERBED 01-01 02:18 → J8W 01-01 05:15
PROVIDERS: ADMIT Internal Medicine; ATTEND Internal Medicine
DX: M87.851 Other osteonecrosis, right femur (principal); M25.551 Pain in right hip; M87.852 Other osteonecrosis, left femur; M25.552 Pain in left hip; R26.9 Unspecified abnormalities of gait and mobility; E66.9 Obesity, unspecified; I10 Essential (primary) hypertension; F31.9 Bipolar disorder, unspecified; Z68.37 Body mass index [BMI] 37.0-37.9, adult; E78.5 Hyperlipidemia, unspecified
CPT/HCPCS: 36415; 80053; 81003; 82962; 85025; 93005; 93010; 99284-25; J0131

== ENCOUNTER 2019-02-11 10:19 | Emergency (ER) | payer OTHER ==
[2019-02-11 10:48] VITALS: TEMP 97.4; BMI 37.4
[2019-02-11] MEDS ORDERED: NALOXONE HCL 0.4 MG/ML VIAL IVPUSH ONE (11:17)
--- NOTE | 2019-02-11 11:20 | PDOC ---
History of Present Illness - General Chief Complaint: Altered Mental Status Stated Complaint: INTOXICATION Time Seen by Provider: 02/11/19 10:52 - History of Present Illness Initial Comments: Sylvie Acosta is a 38yo woman with a PMH of HTN, HLD, CVAx2, PE, DVT s/p IVC Filter and on Eliquis, bipolar disorder, arthritis, and AVN s/p hip replacement who [facility] with report of slurred speech and somnolence. The facility is requesting a tox workup; however, Ms Acosta denies any drug or alcohol use. She is unable to provide any additional information as she falls asleep repeatedly during exam. Past History - Past Medical History Allergies/Adverse Reactions: Allergies Allergy/AdvReac Type Severity Reaction Status Date / Time No Known Drug Allergies Allergy Verified 02/11/19 10:48 Home Medications: Ambulatory Orders Apixaban [Eliquis] 5 mg PO BID 12/15/17 Atorvastatin Ca [Lipitor] 40 mg PO HS 01/01/19 Gabapentin [Neurontin -] 300 mg PO Q8H 01/01/19 Pantoprazole Sodium [Protonix -] 40 mg PO DAILY 01/01/19 Oxycodone HCl/Acetaminophen [Percocet 5-325 mg Tablet] 1 tab PO Q4H PRN #60 tablet MDD 6 tabs 01/02/19 oxyCODONE SR [Oxycontin] 10 mg PO BID #30 tab.er.12h MDD 20 mg 01/02/19 Anemia: No Asthma: No Cancer: No Cardiac Disorders: No CVA: Yes (stroke x 2 - Mar 2017) COPD: No CHF: No Dementia: No Diabetes: No GI Disorders: No Disorders: No HTN: No Hypercholesterolemia: Yes Liver Disease: No Psychiatric Problems: Yes (bipolar) Seizures: No Thyroid Disease: No - Surgical History Abdominal Surgery: Yes Appendectomy: No Cardiac Surgery: Yes (IVC filter ) Cholecystectomy: No Lung Surgery: No Neurologic Surgery: No Orthopedic Surgery: No - Reproductive History (#): 4 Para: 1 Cervical CA: No Dysfunctional Uterine Bleeding: No Ectopic : No Endometrial CA: No Polycystic Ovaries: No Therapeutic (s) & number: Yes (2) Tubal Ligation: No Spontaneous : 0 - Psycho Social/Smoking Cessation Hx Smoking Status: No Smoking History: Unknown if ever smoked Have you smoked in the past 12 months: No Number of Cigarettes Smoked Daily: 0 Hx Alcohol Use: Yes Drug/Substance Use Hx: No Substance Use Type: Alcohol, Marijuana Hx Substance Use Treatment: Yes Review of Systems - Review of Systems Comments:: General: No fevers, no chills, no weight or appetite change, no malaise HEENT: No changes in vision, no changes in hearing, no congestion, no sore throat CV: No chest pain, no palpitations, no LE edema Pulm: No SOB, no cough, no wheezing GI: No nausea or vomiting, no change in bowel habits, no melena : No frequency, no urgency, no dysuria Musc: No back pain, no joint swelling, no recent injury Skin: No rash, no lesions, no erythema Endo: No excessive thirst, no heat/cold intolerance Heme: No unusual bruising or bleeding, no swollen glands Neuro: No syncope, no numbness/tingling, no focal weakness Vasc: No claudication Psych: No recent change in mood, no SI or HI *Physical Exam - Vital Signs Last Vital Signs Temp Pulse Resp BP Pulse Ox 97.4 F L 80 14 113/64 98 02/11/19 10:20 02/11/19 10:20 02/11/19 10:20 02/11/19 10:20 02/11/19 10:20 - Physical Exam General: Sleepy, no acute distress HEENT: Atraumatic, PERRL but constricted b/l at approx 1mm, EOMI, MMM, slurred speech Cards: RRR, no murmur appreciated Pulm: Comfortable on room air, clear to auscultation bilaterally Abd: Soft, nontender, nondistended Ext: Atraumatic. No LE edema. ROM intact. WWP Skin: Normal color, no rashes or lesions Neuro: Sleeping but arousable; oriented x3. CN grossly intact, slurred speech, motor/sensory grossly intact and symmetric but poor participation with exam. Could not test for ataxia. ED Treatment Course - LABORATORY CBC & Chemistry Diagram: 02/11/19 11:30 02/11/19 11:30 Medical Decision Making - Medical Decision Making 02/11/19 11:18 Sylvie Acosta is a 38yo woman with a PMH of HTN, HLD, CVAx2, PE, DVT s/p IVC Filter and on Eliquis, bipolar disorder, arthritis, and AVN s/p hip replacement who presents from [place] rehab with report of slurred speech and somnolence , concerns for intoxication. - May be intoxicated, slurred speech and somnolence, but no history of substance abuse per chart review and pt denies - Will evaluate for intoxication, may need additional w/u if negative - Narcan to evaluate response - CBC, CMP, alcohol level, salicylates, acetaminophen, UA, urine tox 02/11/19 11:21 02/11/19 12:40 - Gave Narcan 0.4mg in increments (0.02, 0.03, 0.05). Pt minimally more alert, but pupils noted to have increased from 1mm to 3mm. - Labs pending 02/11/19 13:12 - Labs reviewed. No concerning abnormalities - Urine tox notable for positive opiates, positive marijuana. Pt endorses marijuana use and has been taking oxycodone following her hip surgery. Prescribed pain medication may be cause of somnolence, especially given response to Narcan - UA likely positive but pt denies symptoms. Was not a clean catch, sample obtained from bedpan. Culture sent. Will not treat unless culture positive or pt reports symptoms - Continue to monitor 02/11/19 14:11 - Patient more alert. Observed walking without difficulty through the ED - Will discharge back to rehab Discussed with Dr Shanon Weller PGY2 Discharge - Discharge Information Problems reviewed: Yes Clinical Impression/Diagnosis: Opiate overdose Qualifiers: Encounter type: initial encounter Injury intent: accidental or unintentional Qualified Code(s): T40.601A - Poisoning by unspecified narcotics, accidental ( unintentional), initial encounter Condition: Stable Disposition: HOME - Admission No - Follow up/Referral Referrals: Tati Jeffries MD [Primary Care Provider] - - Patient Discharge Instructions Patient Printed Discharge Instructions: DI for Drug Overdose in Adults Additional Instructions: Discharge Instructions: You were seen in the emergency department for sleepiness and slurring speech. Your symptoms improved when you were given Narcan, which reverses opiate medications. Your symptoms were probably caused by your prescribed oxycodone. The dosage you are receiving is likely too high and causing you to be excessively sleepy. Home Care: - Avoid using high doses of opiate/narcotic medications. You are currently prescribed a long-acting opiate as well as an as-needed opiate. Try not to take the as needed medication unless you are in significant pain. Consider using acetaminophen (Tylenol) 650-1000mg every 6 hours for mild to moderate pain instead. - Remember that pain medications do not remove pain completely. You will still have some pain whenever you have surgery. - Follow up with your surgeon if your pain does not improve over time. - Seek immediate care for worsening symptoms, excessive sleepiness, difficulty breathing, inability to bear weight, fever to 101F, suddenly worsening pain, or any other medical emergency. - Post Discharge Activity
[2019-02-11] MEDS ORDERED: NALOXONE HCL 0.4 MG/ML VIAL ONE (11:23)
[2019-02-11 12:04] LABS: BASO % 1.3 % (0-2.0); EOS % 3.5 % (0-4.5); HEMATOCRIT 31.1 % (32.4-45.2); HEMOGLOBIN 10.2 GM/dL (10.7-15.3); LYMPH % 29.7 % (8-40); MCH 27.7 pg (25.7-33.7); MCHC 32.7 g/dl (32.0-36.0); MEAN CELL VOLUME 84.6 fl (80-96); MEAN PLT VOLUME 7.8 fl (7.5-11.1); MONO % 10.2 % (3.8-10.2); NEUT % 55.3 % (42.8-82.8); PLATELET COUNT 308 K/MM3 (134-434); RBC 3.68 M/mm3 (3.60-5.2); RDW 15.1 % (11.6-15.6); WHITE BLOOD COUNT 3.5 K/mm3 (4.0-10.0)
[2019-02-11 12:23] LABS: ALBUMIN 3.1 g/dl (3.4-5.0); BILIRUBIN,TOTAL 0.2 mg/dL (0.2-1); BLOOD UREA NITROGEN 5.6 mg/dL (7-18); CALCIUM 8.7 mg/dL (8.5-10.1); COCAINE, UR NEGATIVE ng/ml (CUTOFF=300); EPI CELLS >36 /HPF (0-5/HPF); HYALINE CASTS 52 /lpf (0-8); METHADONE, UR NEGATIVE ng/ml (CUTOFF=300); PHENCYCLIDINE,URINE NEGATIVE ng/ml (CUTOFF=25); POTASSIUM 3.9 mmol/L (3.5-5.1); TOT PROT 7.3 g/dl (6.4-8.2); URINE AMPHETAMINES NEGATIVE ng/ml (CUTOFF=500); URINE APPEARANCE CLOUDY; URINE BACTERIA 1073.2 /hpf (NEGATIVE); URINE BARBITURATES NEGATIVE ng/ml (CUTOFF=200); URINE BENZODIAZEPINES NEGATIVE ng/ml (CUTOFF=200); URINE BILIRUBIN NEGATIVE (NEGATIVE); URINE COLOR DK YELLOW; URINE GLUCOSE (UA) NEGATIVE (NEGATIVE); URINE KETONE TRACE (NEGATIVE); URINE LEUK ESTERASE 1+ (NEGATIVE); URINE NITRITE NEGATIVE (NEGATIVE); URINE PROTEIN 1+ (NEGATIVE); URINE RBC 8 /hpf (0-4); URINE WBC 64 /hpf (0-5)
[2019-02-11 12:25] LABS: OPIATES, URI POSITIVE ng/ml (CUTOFF=300)
--- NOTE | 2019-02-11 12:36 | PDOC ---
Documentation entered by Nadia Chahal SCRIBE, acting as scribe for Pepe Claudio MD. Pepe Claudio MD: This documentation has been prepared by the Fela royal Brenda, SCRIBE, under my direction and personally reviewed by me in its entirety. I confirm that the documentation accurately reflects all work, treatment, procedures, and medical decision making performed by me. Attending Attestation - Resident Resident Name: JaneeBrandy - ED Attending Attestation I have performed the following: I have examined & evaluated the patient, The case was reviewed & discussed with the resident, I agree w/resident's findings & plan, Exceptions are as noted - HPI HPI: 02/11/19 11:08 38y F hx of htn, hl, cva x 2, pe, dvt sp ivc filter, bipolar disorder, arhthritis, avn b/l hips s/p L hip replacement on 01/24 currently at rehab sent to the ED for evaluation of AMS. Pt complaining of feeling very sleepy, but otherwise will provide minimal medical history. Per shelter documentation , the pt had 2 visitors yeterday and was altered after that. Pt denies any headache, chest pain, back pain, abd pain, dysuria, diarrhea, melena, bpr, fever /chills, sob, cough, neck pain. Pt on pain medication at [place], but patient is not sure what the medication it is. Pt denies taking anything else including etoh, recreational drugs. Physicial Exam: GENERAL: The patient is somnoleent, but easily arousable to voice. HEAD: Normocephalic, atraumatic. EYES: Pupils 1-2mm, sluggish ENT: Normal voice, Moist mucous membranes. NECK: Normal range of motion, supple LUNGS: Breath sounds equal, clear to auscultation bilaterally. No wheezes, no rhonchi, no rales. HEART: Regular rate and rhythm, normal S1 and S2 without murmur, rub or gallop. ABDOMEN: Soft, nontender, No guarding, no rebound. No CVA tenderness EXTREMITIES: Normal range of motion, no edema. L hip wound clean/dry with wound dehicense without signs of erythema, odor, induration. NEUROLOGICAL: No facial assymetry, Normal speech, moving all 4 extremities spontaneously and symmetrically PSYCH: Normal mood, normal affect. SKIN: Warm, Dry, normal turgor, Suspect possible opiate intoxication pt given narcan 0.4 with improvement of mental status and improvement of pupilary response. will continue to monitor. discussed with patient expectations of pain control ( pt staets she wanted her pain to be 0). sent blood work, utox will continue to observe - Physicial Exam PE: 02/13/19 17:56 see above - Medical Decision Making Pt feeling improved alert/oriented back to baseline will d with supportive care return precautions were discussed
[2019-02-11 12:46] VITALS: BP 96/51; PULSE 81
[2019-02-11 12:59] LABS: URINE CRYSTALS CAL OX /hpf; YEAST MOD (NEGATIVE)
== END 2019-02-11 15:35 ==
LOC: JER 10:19
PROC: 3E033GC Introduction of Other Therapeutic Substance into Peripheral Vein, Percutaneous Approach (ICD-10-PCS; principal; 2019-02-11)
DX: T40.2X1A Poisoning by other opioids, accidental (unintentional), initial encounter (principal); R40.0 Somnolence; R47.81 Slurred speech; Y92.122 Bedroom in nursing home as the place of occurrence of the external cause; F12.10 Cannabis abuse, uncomplicated; I10 Essential (primary) hypertension; E78.5 Hyperlipidemia, unspecified; Z86.73 Personal history of transient ischemic attack (TIA), and cerebral infarction without residual deficits; Z86.718 Personal history of other venous thrombosis and embolism; Z86.711 Personal history of pulmonary embolism; Z79.01 Long term (current) use of anticoagulants; Z95.828 Presence of other vascular implants and grafts; F31.9 Bipolar disorder, unspecified; M12.9 Arthropathy, unspecified; Z96.649 Presence of unspecified artificial hip joint
CPT/HCPCS: 36415; 80053; 80307; 81003; 85025; 87077; 87086; 96374; 99283-25

== ENCOUNTER 2020-07-31 21:29 | Inpatient (IN) | payer OTHER ==
[2020-07-31] MEDS ORDERED: ACETAMINOPHEN 1000 MG/100 ML VIAL (NON FORMULARY) IVPB ONE (22:28)
[2020-07-31] MEDS ORDERED: ONDANSETRON 4 MG/2 ML VIAL IVPUSH ONE (22:28)
[2020-07-31] MEDS ORDERED: FAMOTIDINE 20 MG/50 ML IVPB 20 MG/50 ML MG IVPB ONE ×2 (22:31→23:27)
[2020-07-31] MEDS ORDERED: MAG HYDROX/AL HYDROX/SIMETH 30 ML UNIT-DOSE CUP PO ONE (22:31)
[2020-07-31 22:53] LABS: BASO % 1.3 % (0-2.0); EOS % 0.8 % (0-4.5); HEMOGLOBIN 11.4 GM/dL (10.7-15.3); LYMPH % 25.1 % (8-40); MCHC 33.4 g/dl (32.0-36.0); MEAN CELL VOLUME 77.8 fl (80-96); MEAN PLT VOLUME 8.6 fl (7.5-11.1); MONO % 8.1 % (3.8-10.2); NEUT % 64.7 % (42.8-82.8); PLATELET COUNT 252 10^3/uL (134-434); RBC 4.37 M/mm3 (3.60-5.2); WHITE BLOOD COUNT 5.8 K/mm3 (4.0-10.0)
[2020-07-31 22:56] LABS: EPI CELLS 20 /uL (0-25.1); HYALINE CASTS 3 /uL (0-3.1); PH,URINE 5.5 (5.0-8.0); URINE APPEARANCE CLEAR; URINE BACTERIA 297 /uL (0-1359); URINE BILIRUBIN NEGATIVE (NEGATIVE); URINE COLOR YELLOW; URINE GLUCOSE (UA) NEGATIVE (NEGATIVE); URINE KETONE TRACE (NEGATIVE); URINE LEUK ESTERASE 1+ (NEGATIVE); URINE NITRITE NEGATIVE (NEGATIVE); URINE PROTEIN NEGATIVE (NEGATIVE); URINE RBC 12 /uL (0-23.9); URINE WBC 20 /uL (0-25.8)
[2020-07-31 23:13] LABS: ALBUMIN 3.8 g/dl (3.4-5.0); CALCIUM 9.1 mg/dL (8.5-10.1)
[2020-07-31 23:15] LABS: BLOOD UREA NITROGEN 6.1 mg/dL (7-18)
[2020-07-31 23:16] LABS: CREATININE 0.8 mg/dL (0.55-1.3)
[2020-07-31 23:19] LABS: BILIRUBIN,TOTAL 0.4 mg/dL (0.2-1); TOT PROT 8.1 g/dl (6.4-8.2)
[2020-07-31] MEDS ORDERED: ACETAMINOPHEN INJECTION 100 ML IVPB ONE (23:26)
[2020-07-31 23:27] LABS: ANISOCYTOSIS 2+; OVALOCYTE 1+; PLATELET ESTIMATE NORMAL
[2020-07-31] MEDS ORDERED: SODIUM CHLORIDE 0.9% 500 ML INFUS.BAG IV ONE (23:27)
[2020-07-31] MEDS ORDERED: ONDANSETRON 4 MG/2 ML VIAL ONE (23:27)
[2020-07-31] MEDS ORDERED: MAG HYDROX/AL HYDROX/SIMETH 30 ML UNIT-DOSE CUP ONE (23:47)
[2020-08-01 00:01] LABS: LACTIC ACID 3.8 mmol/L (0.4-2.0)
[2020-08-01] MEDS ORDERED: morphine SULFATE 4 MG/ML VIAL IVPUSH ONE (04:12)
[2020-08-01] MEDS ORDERED: morphine SULFATE 4 MG/ML VIAL ONE (04:34)
[2020-08-01] MEDS ORDERED: CEFTRIAXONE 1 GM in DEXTROSE 5%-WATER - 100 ML IVPB ONE (04:36)
[2020-08-01] MEDS ORDERED: CEFTRIAXONE 1 GM/50 ML BAG ONE ×2 (04:48→08:41)
[2020-08-01] MEDS ORDERED: ONDANSETRON 4 MG/2 ML VIAL IVPUSH PRN (05:16)
[2020-08-01] MEDS ORDERED: ACETAMINOPHEN 325 MG TABLET (FP) PO PRN (05:16)
[2020-08-01 06:28] LABS: INR 1.38 (0.83-1.09); PROTHROMBIN TIME (PATIENT) 16.8 SEC (9.7-13.0)
[2020-08-01] MEDS: SODIUM CHLORIDE 1,000 ML IV SCH ×2 (07:30→14:58)
[2020-08-01] MEDS ORDERED: APIXABAN 5 MG TABLET ONE (08:41)
[2020-08-01] MEDS ORDERED: PANTOPRAZOLE SODIUM 40 MG VIAL ONE (08:42)
[2020-08-01] MEDS: CEFTRIAXONE 1 GM in DEXTROSE 5%-WATER - 50 ML IVPB SCH (09:01)
[2020-08-01] MEDS: APIXABAN 5 MG TABLET PO SCH ×2 (09:01→21:32)
[2020-08-01] MEDS: PANTOPRAZOLE SODIUM 40 MG VIAL IVPUSH SCH (09:01)
[2020-08-01 10:10] LABS: EOS % 1.7 % (0-4.5); HEMATOCRIT 33.9 % (32.4-45.2); HEMOGLOBIN 10.7 GM/dL (10.7-15.3); LYMPH % 36.6 % (8-40); MCH 25.4 pg (25.7-33.7); MCHC 31.5 g/dl (32.0-36.0); MEAN CELL VOLUME 80.7 fl (80-96); MEAN PLT VOLUME 8.5 fl (7.5-11.1); MONO % 10.3 % (3.8-10.2); NEUT % 50.4 % (42.8-82.8); PLATELET COUNT 211 10^3/uL (134-434); RBC 4.19 M/mm3 (3.60-5.2); RDW 22.6 % (11.6-15.6); WHITE BLOOD COUNT 3.9 K/mm3 (4.0-10.0)
[2020-08-01 10:38] LABS: ALBUMIN 3.5 g/dl (3.4-5.0); BLOOD UREA NITROGEN 3.3 mg/dL (7-18); CALCIUM 9.1 mg/dL (8.5-10.1); MAGNESIUM 2.3 mg/dL (1.8-2.4)
[2020-08-01 10:40] LABS: CREATININE 0.7 mg/dL (0.55-1.3)
[2020-08-01 10:41] LABS: PHOSPHOROUS 3.1 mg/dL (2.5-4.9)
[2020-08-01 10:43] LABS: BILIRUBIN,TOTAL 0.4 mg/dL (0.2-1); TOT PROT 7.3 g/dl (6.4-8.2)
[2020-08-01 14:48] VITALS: BMI 39.1
[2020-08-01] MEDS ORDERED: PANTOPRAZOLE SODIUM PO SCH (15:00)
[2020-08-01] MEDS ORDERED: ERGOCALCIFEROL (VIT D2) 50,000 UNIT (1.25 MG) CAPSULE PO SCH (15:00)
[2020-08-01] MEDS: ASPIRIN 81 MG CHEWABLE TABLETS PO SCH (15:10)
[2020-08-01] MEDS: ATORVASTATIN CA 40 MG TABLET (FP) PO SCH (21:33)
[2020-08-02] MEDS: SODIUM CHLORIDE 1,000 ML IV SCH (06:26)
[2020-08-02 08:07] LABS: BASO % 0.6 % (0-2.0); EOS % 2.5 % (0-4.5); HEMATOCRIT 35.2 % (32.4-45.2); HEMOGLOBIN 11.1 GM/dL (10.7-15.3); LYMPH % 32.4 % (8-40); MCH 25.6 pg (25.7-33.7); MCHC 31.6 g/dl (32.0-36.0); MEAN CELL VOLUME 80.9 fl (80-96); MEAN PLT VOLUME 8.8 fl (7.5-11.1); MONO % 8.6 % (3.8-10.2); NEUT % 55.9 % (42.8-82.8); PLATELET COUNT 250 10^3/uL (134-434); RBC 4.35 M/mm3 (3.60-5.2); RDW 21.8 % (11.6-15.6); WHITE BLOOD COUNT 4.1 K/mm3 (4.0-10.0)
[2020-08-02 08:26] LABS: CHLORIDE 107 mmol/L (98-107); SODIUM 137 mmol/L (136-145)
[2020-08-02 08:32] LABS: CALCIUM 8.8 mg/dL (8.5-10.1)
[2020-08-02 08:33] LABS: ALBUMIN 3.4 g/dl (3.4-5.0); ANION GAP 5 MMOL/L (8-16); BLOOD UREA NITROGEN 5.9 mg/dL (7-18); CO2 24 mmol/L (21-32); GLUCOSE,RANDOM 97 mg/dL (74-106); MAGNESIUM 2.1 mg/dL (1.8-2.4)
[2020-08-02 08:34] LABS: SGOT/AST 25 U/L (15-37); SGPT/ALT 25 U/L (13-61)
[2020-08-02 08:36] LABS: BILIRUBIN,TOTAL 0.4 mg/dL (0.2-1); CREATININE 0.8 mg/dL (0.55-1.3); TOT PROT 7.4 g/dl (6.4-8.2)
[2020-08-02 08:37] LABS: ALK PHOS 61 U/L (45-117)
[2020-08-02] MEDS ORDERED: DEXTROSE 5%-WATER - 50 ML IVPB ONE (08:38)
[2020-08-02] MEDS ORDERED: cefTRIAXone SODIUM 1 GM VIAL ONE (08:38)
[2020-08-02] MEDS: PANTOPRAZOLE SODIUM 40 MG VIAL IVPUSH SCH (09:28)
[2020-08-02] MEDS: CEFTRIAXONE 1 GM in DEXTROSE 5%-WATER - 50 ML IVPB SCH (09:28)
[2020-08-02] MEDS: APIXABAN 5 MG TABLET PO SCH ×2 (09:28→21:17)
[2020-08-02] MEDS: ASPIRIN 81 MG CHEWABLE TABLETS PO SCH (09:28)
[2020-08-02] MEDS: ATORVASTATIN CA 40 MG TABLET (FP) PO SCH (21:17)
[2020-08-02] MEDS: POLYETHYLENE GLYCOL (HEALTHYLAX) 3350 17 GM PACKET PO SCH (21:34)
[2020-08-03] MEDS: POLYETHYLENE GLYCOL (HEALTHYLAX) 3350 17 GM PACKET PO SCH (06:11)
[2020-08-03 06:49] VITALS: TEMP 98
[2020-08-03 08:48] VITALS: BP 119/73; PULSE 75
[2020-08-03 09:09] LABS: EOS % 2.3 % (0-4.5); HEMATOCRIT 35.9 % (32.4-45.2); HEMOGLOBIN 11.4 GM/dL (10.7-15.3); LYMPH % 30.4 % (8-40); MCH 25.7 pg (25.7-33.7); MCHC 31.8 g/dl (32.0-36.0); MEAN CELL VOLUME 80.9 fl (80-96); MONO % 7.2 % (3.8-10.2); NEUT % 59.1 % (42.8-82.8); PLATELET COUNT 241 10^3/uL (134-434); RBC 4.43 M/mm3 (3.60-5.2); WHITE BLOOD COUNT 4.6 K/mm3 (4.0-10.0)
[2020-08-03 09:34] LABS: ALBUMIN 3.6 g/dl (3.4-5.0); BLOOD UREA NITROGEN 5.8 mg/dL (7-18); CALCIUM 8.9 mg/dL (8.5-10.1); MAGNESIUM 1.9 mg/dL (1.8-2.4)
[2020-08-03 09:37] LABS: CREATININE 0.8 mg/dL (0.55-1.3)
[2020-08-03 09:40] LABS: BILIRUBIN,TOTAL 0.3 mg/dL (0.2-1); TOT PROT 7.7 g/dl (6.4-8.2)
[2020-08-03] MEDS: ASPIRIN 81 MG CHEWABLE TABLETS PO SCH (10:45)
[2020-08-03] MEDS: APIXABAN 5 MG TABLET PO SCH (10:45)
[2020-08-03] MEDS: PANTOPRAZOLE SODIUM 40 MG VIAL IVPUSH SCH (10:47)
== END 2020-08-03 13:00 | disposition home or self-care (01) | DRG 394 ==
LOC: JER 21:29 → JERBED 08-01 05:06 → J7W 08-01 14:17
PROVIDERS: ADMIT Internal Medicine; ATTEND Nurse Practitioner Family
DX: K52.1 Toxic gastroenteritis and colitis (principal); D68.59 Other primary thrombophilia; E87.2 Acidosis; T47.4X5A Adverse effect of other laxatives, initial encounter; I10 Essential (primary) hypertension; E78.00 Pure hypercholesterolemia, unspecified; F31.9 Bipolar disorder, unspecified; A04.8 Other specified bacterial intestinal infections; E86.0 Dehydration; K59.09 Other constipation; E66.9 Obesity, unspecified; D25.9 Leiomyoma of uterus, unspecified; Z86.711 Personal history of pulmonary embolism; Z96.642 Presence of left artificial hip joint; Z68.39 Body mass index [BMI] 39.0-39.9, adult; Z86.718 Personal history of other venous thrombosis and embolism; Z86.73 Personal history of transient ischemic attack (TIA), and cerebral infarction without residual deficits; Z95.828 Presence of other vascular implants and grafts
CPT/HCPCS: 36415; 74174-TC; 74176-TC; 76705-TC; 80053; 81003; 82272; 82438; 82550; 82553; 83605; 83690; 83735; 84100; 84302; 84484; 84703; 84999; 85025; 85610; 85730; 86140; 86850; 86900; 86901; 87045; 87046; 87086; 87205; 87324; 87338; 87449; 93005; 93010; 99285-25; C9803; J0131; U0003; U0005

== ENCOUNTER 2020-12-14 17:59 | Observation (INO) | payer OTHER ==
[2020-12-14 18:13] VITALS: TEMP 98; BMI 37.8
[2020-12-14] MEDS ORDERED: FAMOTIDINE 20 MG/50 ML IVPB 20 MG/50 ML MG IVPB ONE ×2 (19:09→19:30)
[2020-12-14] MEDS ORDERED: methylPREDNISolone NA SUCC 125 MG/2 ML VIAL IVPUSH ONE (19:09)
[2020-12-14] MEDS ORDERED: SODIUM CHLORIDE 1,000 ML IV STA (19:09)
[2020-12-14] MEDS ORDERED: methylPREDNISolone NA SUCC 125 MG/2 ML VIAL ONE (19:30)
[2020-12-14] MEDS ORDERED: HYDROCORTISONE 1% TOPICAL OINT 30 GM TUBE TP ONE (21:18)
[2020-12-14 21:27] LABS: BASO % 0.8 % (0-2.0); EOS % 1.6 % (0-4.5); HEMATOCRIT 33.9 % (32.4-45.2); HEMOGLOBIN 11.6 GM/dL (10.7-15.3); LYMPH % 15.9 % (8-40); MCHC 34.3 g/dl (32.0-36.0); MEAN CELL VOLUME 84.5 fl (80-96); MEAN PLT VOLUME 7.8 fl (7.5-11.1); MONO % 4.4 % (3.8-10.2); NEUT % 77.3 % (42.8-82.8); PLATELET COUNT 252 10^3/uL (134-434); RBC 4.01 M/mm3 (3.60-5.2); RDW 14.6 % (11.6-15.6); WHITE BLOOD COUNT 5.4 K/mm3 (4.0-10.0)
[2020-12-14 21:32] LABS: INR 1.64 (0.83-1.09); PROTHROMBIN TIME (PATIENT) 18.5 SEC (9.7-13.0)
[2020-12-14 21:34] LABS: ACTIVATED PTT 34.2 SECONDS (25.2-36.5)
[2020-12-14 21:43] LABS: CHLORIDE 108 mmol/L (98-107); SODIUM 139 mmol/L (136-145)
[2020-12-14 21:45] LABS: ALBUMIN 3.4 g/dl (3.4-5.0); ANION GAP 5 MMOL/L (8-16); CALCIUM 8.8 mg/dL (8.5-10.1); CO2 26 mmol/L (21-32); GLUCOSE,RANDOM 106 mg/dL (74-106); LIPASE 204 U/L (73-393)
[2020-12-14 21:47] LABS: BLOOD UREA NITROGEN 10.2 mg/dL (7-18)
[2020-12-14 21:49] LABS: CREATININE 0.8 mg/dL (0.55-1.3); SGPT/ALT 15 U/L (13-61)
[2020-12-14 21:50] LABS: BILIRUBIN,TOTAL 0.4 mg/dL (0.2-1); LDH 141 U/L (84-246); SGOT/AST 11 U/L (15-37)
[2020-12-14 21:51] LABS: TOT PROT 7.7 g/dl (6.4-8.2)
[2020-12-14 21:52] LABS: ALK PHOS 64 U/L (45-117)
[2020-12-14] MEDS ORDERED: predniSONE 20 MG TABLET (UD) PO ONE (22:16)
[2020-12-14 22:33] LABS: ERYTHROCYTE SEDIMENTATION RATE 44 mm/hr (0-20)
[2020-12-15 01:18] VITALS: PULSE 64
[2020-12-15 05:20] VITALS: BP 115/79
[2020-12-15 08:08] LABS: BASO % 0.3 % (0-2.0); EOS % 0.1 % (0-4.5); HEMOGLOBIN 12.6 GM/dL (10.7-15.3); LYMPH % 14.4 % (8-40); MCH 29.4 pg (25.7-33.7); MCHC 34.1 g/dl (32.0-36.0); MEAN PLT VOLUME 8.7 fl (7.5-11.1); MONO % 2.2 % (3.8-10.2); PLATELET COUNT 295 10^3/uL (134-434); RBC 4.31 M/mm3 (3.60-5.2); RDW 14.8 % (11.6-15.6); WHITE BLOOD COUNT 5.1 K/mm3 (4.0-10.0)
[2020-12-15 08:28] LABS: CHLORIDE 105 mmol/L (98-107); SODIUM 135 mmol/L (136-145)
[2020-12-15 08:30] LABS: ALBUMIN 3.6 g/dl (3.4-5.0); ANION GAP 5 MMOL/L (8-16); BLOOD UREA NITROGEN 9.4 mg/dL (7-18); CALCIUM 9.1 mg/dL (8.5-10.1); CO2 25 mmol/L (21-32)
[2020-12-15 08:31] LABS: GLUCOSE,RANDOM 124 mg/dL (74-106)
[2020-12-15 08:33] LABS: CREATININE 0.9 mg/dL (0.55-1.3); SGOT/AST 10 U/L (15-37); SGPT/ALT 15 U/L (13-61)
[2020-12-15 08:34] LABS: CHOLESTEROL 101 mg/dL (50-200); PHOSPHOROUS 2.4 mg/dL (2.5-4.9); TRIGLYCERIDES 32 mg/dL (0-150)
[2020-12-15 08:35] LABS: BILIRUBIN,TOTAL 0.3 mg/dL (0.2-1); LDL CHOLESTEROL (ONLY SJRH) 19 mg/dL (5-100); TOT PROT 8.2 g/dl (6.4-8.2)
[2020-12-15 08:36] LABS: ALK PHOS 68 U/L (45-117); HDL CHOLESTEROL 70 mg/dL (40-60)
[2020-12-15 09:03] LABS: URINE COLOR YELLOW
[2020-12-15 09:04] LABS: PH,URINE 5.5 (5.0-8.0); URINE APPEARANCE CLOUDY; URINE BILIRUBIN NEGATIVE (NEGATIVE); URINE GLUCOSE (UA) NEGATIVE (NEGATIVE); URINE KETONE TRACE (NEGATIVE); URINE LEUK ESTERASE 1+ (NEGATIVE); URINE NITRITE NEGATIVE (NEGATIVE); URINE PROTEIN TRACE (NEGATIVE); URINE UROBILINOGEN 0.2 mg/dL (0.2-1.0)
[2020-12-15 09:05] LABS: EPI CELLS 131.1 /uL (0-25.1); HYALINE CASTS 13.8 /uL (0-3.1); URINE RBC 19.1 /uL (0-23.9); URINE WBC 322.9 /uL (0-25.8)
[2020-12-15 09:18] LABS: COCAINE, UR NEGATIVE (NEGATIVE); URINE BARBITURATES NEGATIVE (NEGATIVE); URINE BENZODIAZEPINES NEGATIVE (NEGATIVE)
[2020-12-15 09:20] LABS: METHADONE, UR NEGATIVE (NEGATIVE); PHENCYCLIDINE,URINE NEGATIVE (NEGATIVE)
[2020-12-15 09:25] LABS: OPIATES, URI NEGATIVE (NEGATIVE); URINE AMPHETAMINES NEGATIVE (NEGATIVE)
[2020-12-15] MEDS ORDERED: NAPH,MB-DB/K PH,MBDB POWDER PACKET PO ONE (09:30)
[2020-12-15] MEDS ORDERED: APIXABAN 5 MG TABLET PO SCH (10:00)
[2020-12-15] MEDS ORDERED: MAGNESIUM OXIDE 400 MG TABLET (FP) PO SCH (10:00)
[2020-12-15] MEDS ORDERED: PANTOPRAZOLE 40 MG TABLET PO SCH (10:00)
[2020-12-15] MEDS ORDERED: POLYETHYLENE GLYCOL (HEALTHYLAX) 3350 17 GM PACKET PO SCH (10:00)
[2020-12-15] MEDS ORDERED: ASPIRIN 81 MG CHEWABLE TABLETS PO SCH (10:00)
[2020-12-15] MEDS ORDERED: ERGOCALCIFEROL (VIT D2) 50,000 UNIT (1.25 MG) CAPSULE PO SCH (10:00)
[2020-12-15] MEDS ORDERED: PANTOPRAZOLE 40 MG TABLET ONE (13:25)
[2020-12-15] MEDS ORDERED: APIXABAN 5 MG TABLET ONE (13:26)
[2020-12-15] MEDS ORDERED: ATORVASTATIN CA 40 MG TABLET (FP) PO SCH (22:00)
== END 2020-12-15 13:30 | disposition left against medical advice (07) ==
LOC: JERFT 17:59 → INTOOBSV 12-15 01:00 → JERBED 12-15 01:00
PROVIDERS: ADMIT Internal Medicine; ATTEND Internal Medicine
PROC: 3E033GC Introduction of Other Therapeutic Substance into Peripheral Vein, Percutaneous Approach (ICD-10-PCS; principal; 2020-12-15)
PROC: 3E0337Z Introduction of Electrolytic and Water Balance Substance into Peripheral Vein, Percutaneous Approach (ICD-10-PCS; 2020-12-15)
DX: R07.9 Chest pain, unspecified (principal); L53.9 Erythematous condition, unspecified; M87.9 Osteonecrosis, unspecified; F31.9 Bipolar disorder, unspecified; Z79.01 Long term (current) use of anticoagulants; Z86.711 Personal history of pulmonary embolism; Z86.73 Personal history of transient ischemic attack (TIA), and cerebral infarction without residual deficits; Z96.649 Presence of unspecified artificial hip joint; Z29.9 Encounter for prophylactic measures, unspecified; Z97.8 Presence of other specified devices
CPT/HCPCS: 36415; 71046-TC-FY; 71275-TC; 80053; 80061; 80307; 81003; 82550; 83615; 83690; 83735; 84100; 84436; 84443; 84484; 84703; 85025; 85379; 85610; 85651; 85730; 86140; 93005; 93010; 96361; 96365; 96375; 99285-25; C9803; G0378; Q9967; U0003; U0005

== ENCOUNTER 2021-09-22 04:04 | Day surgery (SDC) | payer OTHER ==
[2021-09-17 13:42] VITALS: BMI 36.3
[2021-09-22] MEDS ORDERED: ONDANSETRON 4 MG/2 ML VIAL ONE (09:35)
[2021-09-22] MEDS ORDERED: PROPOFOL 20 ML ONE ×2 (09:35→13:39)
[2021-09-22] MEDS ORDERED: DEXAMETHASONE SOD PHOSPHATE 4 MG/1 ML VIAL ONE (09:35)
[2021-09-22] MEDS ORDERED: KETOROLAC TROMETHAMINE 30 MG/1 ML VIAL ONE (09:35)
[2021-09-22] MEDS ORDERED: ROCURONIUM BROMIDE 50 MG/5 ML SYRINGE ONE (09:36)
[2021-09-22] MEDS ORDERED: MIDAZOLAM HCL 2 MG/2 ML SINGLE DOSE VIAL ONE (09:36)
[2021-09-22] MEDS ORDERED: SUCCINYLCHOLINE CHLORIDE 200 MG/10 ML SYRINGE ONE (09:36)
[2021-09-22] MEDS ORDERED: LIDOCAINE HCL/PF 2% SDV 5ML VIAL ONE (09:44)
[2021-09-22] MEDS ORDERED: BUPIVACAINE HCL/PF 0.25% (2.5MG/ML) 10 ML VIAL ONE ×2 (09:50→09:51)
[2021-09-22] MEDS ORDERED: cefOXitin SODIUM 2 GM VIAL (RESTRICTED TO ID) IVPB ONE ×2 (10:32→12:41)
[2021-09-22] MEDS ORDERED: BUPIVACAINE HCL/PF 0.25% (2.5MG/ML) 10 ML VIAL IJ ONE ×2 (13:08)
[2021-09-22] MEDS ORDERED: NEOSTIGMINE METHYLSULFATE 0.5 MG/1 ML - 10 ML MDV ONE (13:09)
[2021-09-22] MEDS ORDERED: ACETAMINOPHEN 1000 MG/100 ML BAG IVPB ONE (14:29)
[2021-09-22] MEDS ORDERED: ONDANSETRON 4 MG/2 ML VIAL IVPUSH PRN (14:30)
[2021-09-22] MEDS ORDERED: oxyCODONE HCL 5 MG TABLET PO PRN (14:30)
[2021-09-22] MEDS ORDERED: ACETAMINOPHEN INJECTION 100 ML IVPB ONE (14:30)
[2021-09-22] MEDS ORDERED: LACTATED RINGERS SOLUTION 1,000 ML IV SCH (14:30)
[2021-09-22 16:49] VITALS: RESP 18
[2021-09-22 17:13] VITALS: BP 134/75; PULSE 63; TEMP 98.2
== END 2021-09-22 17:18 | disposition home or self-care (01) ==
LOC: JASU-SURG 04:04
PROVIDERS: ATTEND Surgery
PROC: 0FT44ZZ Resection of Gallbladder, Percutaneous Endoscopic Approach (ICD-10-PCS; principal; 2021-09-22 13:04)
DX: K81.1 Chronic cholecystitis (principal)
CPT/HCPCS: 81025; 88304-TC; 94760

== ENCOUNTER 2022-04-17 04:25 | Day surgery (SDC) | payer OTHER ==
[2022-04-15 14:07] VITALS: BMI 37.1
[~2022-04-17 04:25] MED LIST: LIDOCAINE HCL 1%, 10 MG/ML (20ML VIAL) NR ONE
[2022-04-17] MEDS ORDERED: BUPIVACAINE HCL/PF 0.5% (5MG/ML) 10 ML VIAL ONE (13:40)
[2022-04-17] MEDS ORDERED: LIDOCAINE HCL 1%, 10 MG/ML (10ML VIAL) MDV ONE ×2 (13:40→14:37)
[2022-04-17] MEDS ORDERED: MIDAZOLAM HCL 2 MG/2 ML SINGLE DOSE VIAL ONE ×2 (13:58→14:07)
[2022-04-17] MEDS ORDERED: PROPOFOL 60 ML ONE (14:03)
[2022-04-17] MEDS ORDERED: ceFAZolin SODIUM 1 GM VIAL IVPB ONE (14:18)
[2022-04-17] MEDS ORDERED: LIDOCAINE HCL 1%, 10 MG/ML (20ML VIAL) NR ONE ×2 (14:23)
[2022-04-17] MEDS ORDERED: BUPIVACAINE HCL/PF 0.25% (2.5MG/ML) 10 ML VIAL IJ ONE (15:15)
[2022-04-17] MEDS ORDERED: oxyCODONE HCL 5 MG TABLET PO PRN (15:16)
[2022-04-17] MEDS ORDERED: ONDANSETRON 4 MG/2 ML VIAL IVPUSH PRN (15:16)
[2022-04-17] MEDS ORDERED: LACTATED RINGERS SOLUTION 1,000 ML IV SCH (15:30)
[2022-04-17 17:02] VITALS: BP 135/84; PULSE 70; RESP 20; TEMP 97.4
== END 2022-04-17 16:35 | disposition home or self-care (01) ==
LOC: JASU-SURG 04:25
PROVIDERS: ATTEND Podiatrist Foot Surgery
PROC: 0QSN04Z Reposition Right Metatarsal with Internal Fixation Device, Open Approach (ICD-10-PCS; principal; 2022-04-17 15:00)
DX: M21.611 Bunion of right foot (principal)
CPT/HCPCS: 81025; 88305-TC; 88311-TC

== ENCOUNTER 2022-06-12 04:04 | Day surgery (SDC) | payer OTHER ==
[2022-06-11 11:20] VITALS: BMI 37.1
[~2022-06-12 04:04] MED LIST changes: +BUPIVACAINE HCL/PF 0.5% (5MG/ML) 10 ML VIAL IJ ONE; +LIDOCAINE 1% P/F 10 MG/ML VIAL INF ONE; -LIDOCAINE HCL 1%, 10 MG/ML (20ML VIAL) NR ONE; +ceFAZolin SODIUM 1 GM VIAL IVPB ONE
[2022-06-12] MEDS ORDERED: LIDOCAINE HCL 1%, 10 MG/ML (10ML VIAL) MDV ONE (11:02)
[2022-06-12] MEDS ORDERED: BUPIVACAINE HCL/PF 0.5% (5MG/ML) 10 ML VIAL ONE (11:02)
[2022-06-12] MEDS ORDERED: BENZOIN/ALOE VERA/STORAX/TOLU 58 ML BOTTLE ONE (11:16)
[2022-06-12] MEDS ORDERED: MIDAZOLAM HCL 2 MG/2 ML SINGLE DOSE VIAL ONE (13:19)
[2022-06-12] MEDS ORDERED: ceFAZolin SODIUM 1 GM VIAL IVPB ONE ×2 (13:27→13:28)
[2022-06-12] MEDS ORDERED: LIDOCAINE 1% P/F 10 MG/ML VIAL INF ONE (13:33)
[2022-06-12] MEDS ORDERED: PROPOFOL 20 ML ONE (14:02)
[2022-06-12] MEDS ORDERED: BUPIVACAINE HCL/PF 0.5% (5MG/ML) 10 ML VIAL IJ ONE (14:31)
[2022-06-12] MEDS ORDERED: ONDANSETRON 4 MG/2 ML VIAL IVPUSH PRN (14:42)
[2022-06-12] MEDS ORDERED: oxyCODONE HCL 5 MG TABLET PO PRN (14:42)
[2022-06-12] MEDS ORDERED: ACETAMINOPHEN 1000 MG/100 ML BAG IVPB ONE ×2 (14:42→15:17)
[2022-06-12] MEDS ORDERED: LACTATED RINGERS SOLUTION 1,000 ML IV SCH (14:45)
[2022-06-12] MEDS ORDERED: ACETAMINOPHEN INJECTION 100 ML IVPB ONE (15:09)
[2022-06-12 15:44] VITALS: RESP 16
[2022-06-12 16:22] VITALS: BP 115/74; PULSE 86; TEMP 97.6
== END 2022-06-12 16:40 | disposition home or self-care (01) ==
LOC: JASU-SURG 04:04
PROVIDERS: ATTEND Podiatrist Foot Surgery
PROC: 0QBP0ZZ Excision of Left Metatarsal, Open Approach (ICD-10-PCS; principal; 2022-06-12 13:00)
DX: M21.612 Bunion of left foot (principal)
CPT/HCPCS: 81025; 88305-TC; 88311-TC; 94760

== ENCOUNTER 2022-06-21 13:18 | Emergency (ER) | payer OTHER ==
[2022-06-21 13:33] VITALS: BP 121/86; PULSE 98; RESP 18; TEMP 98; BMI 36.3
[2022-06-21 15:26] LABS: EPI CELLS 32 /uL (0-25.1); HYALINE CASTS 2 /uL (0-3.1); PH,URINE 5.5 (5.0-8.0); URINE APPEARANCE CLEAR; URINE BACTERIA 58 /uL (0-1359); URINE BILIRUBIN NEGATIVE (NEGATIVE); URINE COLOR YELLOW; URINE GLUCOSE (UA) NEGATIVE (NEGATIVE); URINE KETONE TRACE (NEGATIVE); URINE LEUK ESTERASE NEGATIVE (NEGATIVE); URINE NITRITE NEGATIVE (NEGATIVE); URINE PROTEIN 1+ (NEGATIVE); URINE RBC 197 /uL (0-23.9); URINE UROBILINOGEN 0.2 mg/dL (0.2-1.0); URINE WBC 23 /uL (0-25.8)
[2022-06-21] MEDS ORDERED: CEPHALEXIN MONOHYDRATE 500 MG CAPSULE (UD) PO ONE (17:37)
[2022-06-21] MEDS ORDERED: CEPHALEXIN MONOHYDRATE 500 MG CAPSULE (UD) ONE (17:40)
== END 2022-06-21 17:54 | disposition home or self-care (01) ==
LOC: JERFT 13:18
DX: N30.00 Acute cystitis without hematuria (principal)
CPT/HCPCS: 36415; 76775-TC; 81003; 87070; 87077; 87086; 87205; 87491; 87591; 99284-25

== ENCOUNTER 2023-02-24 16:15 | Emergency (ER) | payer OTHER ==
[2023-02-24 16:37] VITALS: BP 132/89; PULSE 66; RESP 18; TEMP 98.2; BMI 37.9
[2023-02-24] MEDS ORDERED: ACETAMINOPHEN 500 MG TABLET (FP) PO ONE (17:26)
[2023-02-24] MEDS ORDERED: ACETAMINOPHEN 325 MG TABLET (FP) ONE (17:45)
== END 2023-02-24 20:08 | disposition home or self-care (01) ==
LOC: JER 16:15
DX: M25.552 Pain in left hip (principal); W00.0XXA Fall on same level due to ice and snow, initial encounter
CPT/HCPCS: 72170-TC-FY; 73521-TC-FY; 99284-25

== ENCOUNTER 2023-05-17 15:52 | Inpatient (IN) | payer OTHER ==
[2023-05-17 16:10] VITALS: BMI 37.9
[2023-05-17 18:22] LABS: BASO % 0.9 % (0-2.0); HEMATOCRIT 37.8 % (32.4-45.2); LYMPH % 35.2 % (8-40); MCH 29.9 pg (25.7-33.7); MCHC 34.4 g/dl (32.0-36.0); MEAN CELL VOLUME 86.9 fl (80-96); MEAN PLT VOLUME 8.5 fl (7.5-11.1); MONO % 7.1 % (3.8-10.2); NEUT % 55.8 % (42.8-82.8); PLATELET COUNT 230 10^3/uL (134-434); RBC 4.36 M/mm3 (3.60-5.2); RDW 13.9 % (11.6-15.6); WHITE BLOOD COUNT 5.2 K/mm3 (4.0-10.0)
[2023-05-17 18:26] LABS: INR 1.31 (0.83-1.09); PROTHROMBIN TIME (PATIENT) 15.2 SEC (9.7-13.0)
[2023-05-17 18:28] LABS: ACTIVATED PTT 35.4 SECONDS (25.2-36.5)
[2023-05-17 18:39] LABS: CHLORIDE 108 mmol/L (98-107); POTASSIUM 3.9 mmol/L (3.5-5.1); SODIUM 135 mmol/L (136-145)
[2023-05-17 18:41] LABS: CALCIUM 9.7 mg/dL (8.5-10.1)
[2023-05-17 18:42] LABS: ALBUMIN 3.8 g/dl (3.4-5.0); ANION GAP 5 mmol/L (4-13); BLOOD UREA NITROGEN 6.4 mg/dL (7-18); CO2 22 mmol/L (21-32); GLUCOSE,RANDOM 112 mg/dL (74-106)
[2023-05-17 18:45] LABS: CREATININE 0.8 mg/dL (0.55-1.3); SGOT/AST 16 U/L (15-37); SGPT/ALT 20 U/L (13-61)
[2023-05-17 18:47] LABS: BILIRUBIN,TOTAL 0.4 mg/dL (0.2-1); TOT PROT 8.1 g/dl (6.4-8.2)
[2023-05-17 18:48] LABS: ALK PHOS 56 U/L (45-117)
[2023-05-17] MEDS ORDERED: HALOPERIDOL LACTATE 5 MG/ML ONE ×2 (18:48→20:01)
[2023-05-17] MEDS: HALOPERIDOL LACTATE 5 MG/ML IM ONE ×2 (18:58→20:10)
[2023-05-17] MEDS: LORazepam 2 MG/ML SDV VIAL IM ONE ×2 (18:59→20:10)
[2023-05-17] MEDS: LORazepam 2 MG/ML SDV VIAL IVPUSH ONE (19:05)
[2023-05-17] MEDS: HALOPERIDOL LACTATE 5 MG/ML IVPUSH ONE (19:06)
[2023-05-17 19:21] LABS: COCAINE, UR NEGATIVE (NEGATIVE); OPIATES, URI NEGATIVE (NEGATIVE); URINE AMPHETAMINES NEGATIVE (NEGATIVE); URINE BARBITURATES NEGATIVE (NEGATIVE)
[2023-05-17 19:24] LABS: EPI CELLS >36 /uL (0-25.1); HYALINE CASTS 2 /uL (0-3.1); URINE APPEARANCE CLOUDY; URINE BACTERIA 4436 /uL (0-1359); URINE BILIRUBIN NEGATIVE (NEGATIVE); URINE COLOR YELLOW; URINE GLUCOSE (UA) NEGATIVE (NEGATIVE); URINE KETONE NEGATIVE (NEGATIVE); URINE LEUK ESTERASE 2+ (NEGATIVE); URINE NITRITE NEGATIVE (NEGATIVE); URINE PROTEIN TRACE (NEGATIVE); URINE RBC 30 /uL (0-23.9); URINE UROBILINOGEN 0.2 mg/dL (0.2-1.0); URINE WBC 46 /uL (0-25.8)
[2023-05-17 20:37] LABS: METHADONE, UR NEGATIVE (NEGATIVE)
[2023-05-17 20:38] LABS: URINE BENZODIAZEPINES NEGATIVE (NEGATIVE)
[2023-05-17 20:42] LABS: PHENCYCLIDINE,URINE NEGATIVE (NEGATIVE)
[2023-05-17 21:24] LABS: URINE CRYSTALS MODERATE /hpf
[2023-05-18] MEDS ORDERED: HALOPERIDOL LACTATE 5 MG/ML ONE (08:31)
[2023-05-18] MEDS: HALOPERIDOL LACTATE 5 MG/ML IM ONE (08:39)
[2023-05-18] MEDS ORDERED: APIXABAN 5 MG TABLET ONE (10:29)
[2023-05-18] MEDS: APIXABAN 5 MG TABLET PO ONE (10:33)
[2023-05-19] MEDS ORDERED: APIXABAN 5 MG TABLET ONE (11:44)
[2023-05-19] MEDS ORDERED: FERROUS SO4 325 MG TABLET (FP) ONE (11:44)
[2023-05-19] MEDS: FERROUS SO4 325 MG TABLET (FP) PO SCH (11:46)
[2023-05-19] MEDS: APIXABAN 5 MG TABLET PO SCH (11:46)
[2023-05-19] MEDS ORDERED: HALOPERIDOL LACTATE 5 MG/ML ONE ×2 (13:55→19:42)
[2023-05-19] MEDS: OLANZapine 5 MG TABLET PO ONE (14:28)
[2023-05-19] MEDS: HALOPERIDOL LACTATE 5 MG/ML IM PRN (19:50)
[2023-05-19] MEDS: ATORVASTATIN CA 40 MG TABLET (FP) PO SCH (23:06)
[2023-05-20] MEDS ORDERED: ATORVASTATIN CA 40 MG TABLET (FP) ONE (01:22)
[2023-05-20] MEDS ORDERED: APIXABAN 5 MG TABLET ONE (01:22)
[2023-05-20] MEDS ORDERED: LORazepam 2 MG/ML SDV VIAL IVPUSH PRN (10:17)
[2023-05-20] MEDS: LORazepam 2 MG/ML SDV VIAL IM PRN (11:03)
[2023-05-20] MEDS: OLANZapine 5 MG TABLET PO SCH (21:29)
[2023-05-20] MEDS ORDERED: OLANZapine 5 MG TABLET PO SCH (22:00)
[2023-05-21 11:39] VITALS: BP 116/66; PULSE 75; RESP 16; TEMP 97.9
== END 2023-05-21 11:52 | disposition short-term general hospital (02) | DRG 885 ==
LOC: JER 15:52 → JERBED 05-18 19:29 → OBSVTOIN 05-18 20:40 → J7W 05-20 09:02
PROVIDERS: ADMIT Internal Medicine; ATTEND Internal Medicine
DX: F31.0 Bipolar disorder, current episode hypomanic (principal); R45.1 Restlessness and agitation; E66.9 Obesity, unspecified; Z68.37 Body mass index [BMI] 37.0-37.9, adult
CPT/HCPCS: 36415; 80053; 80307; 81003; 84443; 84702; 85025; 85610; 85730; 87086; 87635; 93005; 93010; 99285-25; G0378

== ENCOUNTER 2024-08-11 14:03 | Emergency (ER) | payer OTHER ==
[2024-08-11 14:20] VITALS: BP 118/50; PULSE 85; RESP 18; TEMP 98.3; BMI 34.5
== END 2024-08-11 17:00 | disposition home or self-care (01) ==
LOC: JER 14:03
DX: M79.605 Pain in left leg (principal)
CPT/HCPCS: 73502-TC-LT-FY; 99291; 99292

== ENCOUNTER 2024-11-06 06:31 | Inpatient (IN) | payer OTHER ==
[2024-11-02 10:18] VITALS: BMI 33.7
[2024-11-06] MEDS: ceFAZolin 2 GRAM PREMIX BAG IVPB ONE
[2024-11-06] MEDS ORDERED: PHENAZOPYRIDINE HCL 100 MG TABLET (FP) ONE (07:23)
[2024-11-06] MEDS ORDERED: GABAPENTIN 300 MG CAPSULE ONE (07:23)
[2024-11-06] MEDS: GABAPENTIN 300 MG CAPSULE PO ONE (07:27)
[2024-11-06] MEDS: PHENAZOPYRIDINE HCL 100 MG TABLET (FP) PO ONE (07:27)
[2024-11-06] MEDS ORDERED: ONDANSETRON *ODT* 4 MG TABLET ONE (08:45)
[2024-11-06] MEDS: ONDANSETRON *ODT* 4 MG TABLET SL ONE (08:53)
[2024-11-06] MEDS ORDERED: MIDAZOLAM HCL 2 MG/2 ML SINGLE DOSE VIAL ONE (11:13)
[2024-11-06] MEDS ORDERED: DEXAMETHASONE SOD PHOSPHATE 4 MG/1 ML VIAL ONE (11:14)
[2024-11-06] MEDS ORDERED: KETOROLAC TROMETHAMINE 30 MG/1 ML VIAL ONE (11:14)
[2024-11-06] MEDS ORDERED: ONDANSETRON 4 MG/2 ML VIAL ONE (11:14)
[2024-11-06] MEDS ORDERED: PROPOFOL 20 ML ONE ×2 (11:21→13:11)
[2024-11-06] MEDS ORDERED: ROCURONIUM BROMIDE 50 MG/5 ML SYRINGE ONE (11:21)
[2024-11-06] MEDS ORDERED: TRANEXAMIC ACID 1000 MG/10 ML VIAL ONE (12:51)
[2024-11-06] MEDS ORDERED: ONDANSETRON 4 MG/2 ML VIAL IVPUSH PRN (13:54)
[2024-11-06] MEDS ORDERED: BISACODYL 5 MG TABLET.DR (FP) PO PRN (13:54)
[2024-11-06] MEDS ORDERED: ZOLPIDEM TARTRATE 5 MG TABLET PO PRN (13:57)
[2024-11-06] MEDS ORDERED: PROMETHAZINE HCL 25 MG/1 ML VIAL IVPB PRN (14:48)
[2024-11-06] MEDS ORDERED: ACETAMINOPHEN INJECTION 100 ML ONE (15:04)
[2024-11-06] MEDS: ACETAMINOPHEN 1000 MG/100 ML BAG IVPB SCH (15:07)
[2024-11-06] MEDS: IBUPROFEN 800 MG/8 ML IJ IVPB SCH (15:07)
[2024-11-06] MEDS: LACTATED RINGERS SOLUTION 1,000 ML IV SCH (17:08)
[2024-11-06] MEDS: CEFAZOLIN 2 GM in DEXTROSE 5%-WATER - 100 ML IVPB ONE (17:41)
[2024-11-06] MEDS: ACETAMINOPHEN 1000 MG/100 ML BAG IVPB ONE (17:42)
[2024-11-06 19:04] LABS: MCHC 32.9 g/dl (32.2-35.5); MEAN CELL VOLUME 88.0 fl (79.4-94.8); MEAN PLT VOLUME 10.6 fl (9.4-12.3); RDW 15.2 % (12.2-17.1)
[2024-11-06 19:28] LABS: GLUCOSE,RANDOM 137.0 mg/dL (74-106)
[2024-11-06 19:30] LABS: CO2 25.0 mmol/L (21-32)
[2024-11-06 19:34] LABS: CREATININE 0.89 mg/dL (0.55-1.3)
[2024-11-06] MEDS: CEFAZOLIN 1 GM in DEXTROSE 5%-WATER - 50 ML IVPB SCH (21:18)
[2024-11-06] MEDS: CEFAZOLIN 1 GM/D5W 1 GM/50 ML BAG IVPB SCH (21:19)
[2024-11-07] MEDS: DOCUSATE SODIUM 100 MG CAPSULE (FP) PO PRN (06:11)
[2024-11-07] MEDS: SIMETHICONE 80 MG TAB.CHEW (FP) PO PRN (06:11)
[2024-11-07 06:54] LABS: MCHC 33.7 g/dl (32.2-35.5); MEAN CELL VOLUME 86.6 fl (79.4-94.8); MEAN PLT VOLUME 11.2 fl (9.4-12.3); RDW 15.1 % (12.2-17.1)
[2024-11-07 07:31] LABS: GLUCOSE,RANDOM 125.0 mg/dL (74-106)
[2024-11-07 07:33] LABS: CO2 23.0 mmol/L (21-32)
[2024-11-07 07:37] LABS: CREATININE 0.88 mg/dL (0.55-1.3)
[2024-11-07] MEDS: ENOXAPARIN NA (PORCINE) 40 MG/0.4 ML DISP.SYRIN SQ SCH (10:43)
[2024-11-07] MEDS ORDERED: ACETAMINOPHEN 325 MG TABLET (FP) PO PRN (14:00)
[2024-11-07] MEDS: IBUPROFEN 600 MG TABLET (FP) PO PRN (14:47)
[2024-11-07 22:21] VITALS: TEMP 98.1
[2024-11-08 08:27] VITALS: BP 121/73; PULSE 58; RESP 17
== END 2024-11-08 08:45 | disposition home or self-care (01) | DRG 743 ==
LOC: J2C 06:31 → J3W 17:20
PROVIDERS: ADMIT Obstetrics & Gynecology; ATTEND Obstetrics & Gynecology
PROC: 0UT70ZZ Resection of Bilateral Fallopian Tubes, Open Approach (ICD-10-PCS; 2024-11-06)
PROC: 0DNW0ZZ Release Peritoneum, Open Approach (ICD-10-PCS; 2024-11-06)
PROC: 0UB00ZZ Excision of Right Ovary, Open Approach (ICD-10-PCS; 2024-11-06)
PROC: 0UT90ZZ Resection of Uterus, Open Approach (ICD-10-PCS; principal; 2024-11-06 09:30)
DX: D25.9 Leiomyoma of uterus, unspecified (principal); K66.0 Peritoneal adhesions (postprocedural) (postinfection); N83.291 Other ovarian cyst, right side
CPT/HCPCS: 36415; 80048; 85027; 86850; 86900; 86901; 88304-TC; 88305-TC; 88307-TC; 94760; Q0162